=== PATIENT | male | born 1930 | race Caucasian/White ===

== ENCOUNTER 2017-03-31 14:02 | Observation (INO) ==
--- NOTE | 2017-03-31 14:18 | Emergency Department Note ---
Disposition Clinical Impression: Altered mental status Qualifiers: Altered mental status type: unspecified Qualified Code(s): R41.82 - Altered mental status, unspecified Hypertension Qualifiers: Hypertension type: essential hypertension Qualified Code(s): I10 - Essential ( primary) hypertension Disposition: Admitted As Inpatient Condition: Fair Referrals: NONE,PCP [Primary Care Provider] - Forms: ED Satisfaction Letter Time of Disposition: 16:29 Altered Mental Status HPI - General Chief Complaint: ED Altered Mental Status Stated Complaint: AMS Time Seen by Provider: 03/31/17 14:08 Source: EMS Mode of arrival: EMS Limitations: altered mental status Nursing Notes Reviewed: Yes Vital Signs Reviewed: Yes - History of Present Illness HPI Narrative: 86-year-old male who comes in with increasing confusion. The daughter states he' s had problems with memory that is getting progressively worse more confused. The patient lives with his his apparently was admitted yesterday here and had a heart catheter done since she was admitted he will need or drink is more confused. On arrival he doesn't know where he sat does not know the date. She denies any pain. MD complaint: altered mental status Onset (ago): week(s) Timing confirmed by: family member Pain Severity: none Consistency of Symptoms: getting worse Associated symptoms: Reports: denies other symptoms - Related Data Allergies Allergy/AdvReac Type Severity Reaction Status Date / Time No Known Allergies Allergy Verified 03/31/17 14:07 All systems ED: reviewed and negative except as stated. Constitutional: Denies: fever, chills, weakness, weight change Eyes: Denies: eye pain, eye discharge, vision change ENT ED: Denies: ear pain, throat pain, dental pain, hearing loss, epistaxis, congestion, dysphagia Cardiovascular: Denies: chest pain, palpitations, dyspnea on exertion, edema, syncope Respiratory: Denies: cough, dyspnea, wheezes, hemoptysis, stridor Gastrointestinal: Denies: abdominal pain, nausea, vomiting, diarrhea, constipation, hematemesis, melena, hematochezia Genitourinary: Denies: urgency, dysuria, frequency, hematuria Musculoskeletal: Denies: back pain, neck pain, arthralgia, myalgia Integumentary: Denies: rash, abrasion, lesions Neurological: Reports: confusion. Denies: headache, weakness, numbness, paresthesias, abnormal gait, vertigo Psychiatric: Denies: anxiety, depression, suicidal thoughts, homicidal thoughts , auditory hallucinations, visual hallucinations Endocrine: Denies: fatigue Hematological/Lymphatic: Denies: easy bleeding, easy bruising Allergic/Immunologic: Denies: facial swelling, urticaria Past Medical History - Past Medical History Medical history: Reports: dementia, hypertension, myocardial infarction, thyroid disease Psychiatric history: Reports: no psych history - Social History Smoking Status: Never smoker Smokeless Tobacco Status: No Alcohol use: Reports: none Drug use: Reports: none Physical Exam - General Limitations: altered mental status General appearance: alert (Confusion), in no apparent distress - Head Head exam: atraumatic, normocephalic, normal inspection - Eye Eye exam: Present: normal appearance, PERRL, EOMI - ENT ENT exam: normal exam, normal oropharynx, mucous membranes moist - Neck Neck exam: Present: normal inspection, full ROM, trachea midline - Chest Chest inspection: Present: normal inspection, symmetric chest wall rise - Respiratory Respiratory exam: Present: normal lung sounds bilaterally - Cardiovascular Cardiovascular exam: Present: regular rate, normal rhythm, normal heart sounds - Abdominal Exam Abdominal exam: Present: soft, Non-Tender. Absent: tenderness, distention, guarding, rebound, rigidity - Extremities Exam Extremities exam: Present: normal inspection, full ROM. Absent: tenderness, pedal edema - Expanded Lower Extremity Exam Neurovascular/Tendon exam: Absent: motor deficit, sensory deficit, tendon deficit Gait: observed and normal - Back Exam Back exam: Present: normal inspection, full ROM. Absent: tenderness - Expanded Neurological Exam Patient oriented to: Present: person. Absent: place, time (Thought it was August 05 and did not know the year) Speech: Present: fluid speech Motor strength - LUE: 5/5 Motor strength - RUE: 5/5 Motor strength - LLE: 5/5 Motor strength - RLE: 5/5 Coma Scale Eye Opening: Spontaneous Coma Scale Motor Response: Obeys Commands Coma Scale Verbal Response: Confused Coma Scale Total: 14 - Psychiatric Psychiatric exam: Present: normal affect, normal mood - Skin Skin exam: Present: warm, dry, intact, normal color Course - Reevaluation(s) Reevaluation #1: 86-year-old male who has had increasing difficulty with memory his was admitted to the hospital yesterday since that time he has not eaten or drank anything in his become more confused. On arrival here he is not oriented to place or time. Has a lot of difficulty expressing his thoughts. Workup including CT scan was negative negative for urinary tract infection. Lab work all looks okay. This likely represents dementia. Patient will be admitted for evaluation sr. social media & mobile manager it's unclear whether his is going to be take care of him in light of her medical issues. Time: 16:27 - Consultations Consultation #1: Discussed with , admit. Time: 16:29 Vital Signs Temperature 98.9 F 03/31/17 14:08 Pulse Rate 73 03/31/17 14:08 Respiratory Rate 12 03/31/17 14:08 Blood Pressure 189/93 03/31/17 14:08 O2 Sat by Pulse Oximetry 95 03/31/17 14:08 Temperature 98.9 F 03/31/17 14:08 Pulse Rate 60 03/31/17 15:57 Respiratory Rate 14 03/31/17 15:57 Blood Pressure 167/86 03/31/17 15:57 O2 Sat by Pulse Oximetry 94 03/31/17 15:57 Oxygen Delivery Oxygen Delivery Room Air Altered Mental Status - Lab Data Result diagrams: 03/31/17 14:28 03/31/17 14:28 Lab Results 03/31/17 03/31/17 03/31/17 Range/Units 14:23 14:23 14:28 WBC 5.8 (4.3-11.1) K/mcL RBC 5.33 (4.19-5.50) M/mcL Hgb 15.4 (12.9-16.9) g/dL Hct 47.2 (37.5-50.1) % MCV 88.6 (83.0-100.0) fL MCH 28.9 (28.0-33.3) pg MCHC 32.6 (31.6-35.5) g/dL RDW 13.5 (11.5-14.5) % Plt Count 185 (140-400) K/mcL MPV 10.5 (9.4-12.4) fL Immature Gran % 0.5 (0-4) % Seg Neutrophils % 75.5 % Lymphocytes % 11.2 % Monocytes % 9.5 % Eosinophils % 2.4 % Basophils % 0.9 % Neutrophils # 4.4 (1.6-8.9) K/mcL Lymphocytes # 0.7 (0.6-4.6) K/mcL Monocytes # 0.6 (0.0-1.3) K/mcL Eosinophils # 0.1 (0.0-0.6) K/mcL Basophils # 0.1 (0.0-0.2) K/mcL PT (9.4-12.1) Seconds INR APTT (26.0-36.0) Seconds Sodium (136-145) mEq/L Potassium (3.5-4.5) mEq/L Chloride (98-109) mEq/L Carbon Dioxide (19-29) mEq/L BUN (8-26) mg/dL Creatinine (0.72-1.25) mg/dL Est GFR ( Amer) (> 60) Est GFR (Non-Af Amer) (> 60) BUN/Creatinine Ratio (6-26) Glucose (70-99) mg/dL Calculated Osmolality (280-300) Calcium (8.6-10.8) mg/dL Total Bilirubin (0.2-1.2) mg/dL Direct Bilirubin (0.0-0.5) mg/dL Indirect Bilirubin (0.0-1.2) mg/dL AST (5-34) Units/L ALT (0-55) Units/L Alkaline Phosphatase (38-126) Units/L Troponin I (0-0.03) ng/mL Serum Total Protein (6.0-8.3) g/dL Albumin (3.5-5.0) g/dL Globulin (2.4-3.5) g/dL Albumin/Globulin Ratio (1.1-2.2) Urine Color Dark Yellow (Yellow) Urine Clarity Clear (Clear) Urine pH 5.5 (5.0-8.0) pH Units Ur Specific [place]ws 1.027 H (1.010-1.025) Urine Protein 30 H (Neg-Trace) mg/dL Urine Glucose (UA) Normal (Normal) mg/dL Urine Ketones Trace H (Negative) mg/dL Urine Blood Negative (Negative) Urine Nitrite Negative (Negative) Urine Bilirubin Small H (Negative) Urine Urobilinogen Normal (Normal) mg/dL Ur Leukocyte Esterase Negative (Negative) Urine Microscopic RBC 3-5 H (0-3) per hpf Urine Microscopic WBC 0-3 (0-3) per hpf Ur Squamous Epith Cells Moderate H (None-Few) per lpf Urine Bacteria None Seen (None-Few) per hpf Hyaline Casts None Seen (None-Few) per lpf Ur Culture Indicated? NO (NO) Urine Opiates Screen Negative (Qxrzbf=594) ng/mL Ur Barbiturates Screen Negative (Kdnebo=734) ng/mL Ur Phencyclidine Scrn Negative (Cutoff=25) ng/mL Ur Amphetamines Screen Negative (Wzpxyk=4314) ng/mL U Benzodiazepines Scrn Negative (Luyrox=107) ng/mL Urine Cocaine Screen Negative (Cutoff= 300) ng/mL U Marijuana (THC) Screen Negative (Cutoff = 50) ng/mL Ethyl Alcohol (0-10) mg/dL 03/31/17 03/31/17 03/31/17 Range/Units 14:28 14:28 14:28 WBC (4.3-11.1) K/mcL RBC (4.19-5.50) M/mcL Hgb (12.9-16.9) g/dL Hct (37.5-50.1) % MCV (83.0-100.0) fL MCH (28.0-33.3) pg MCHC (31.6-35.5) g/dL RDW (11.5-14.5) % Plt Count (140-400) K/mcL MPV (9.4-12.4) fL Immature Gran % (0-4) % Seg Neutrophils % % Lymphocytes % % Monocytes % % Eosinophils % % Basophils % % Neutrophils # (1.6-8.9) K/mcL Lymphocytes # (0.6-4.6) K/mcL Monocytes # (0.0-1.3) K/mcL Eosinophils # (0.0-0.6) K/mcL Basophils # (0.0-0.2) K/mcL PT 10.7 (9.4-12.1) Seconds INR 1.0 APTT 31.1 (26.0-36.0) Seconds Sodium 141 (136-145) mEq/L Potassium 3.9 (3.5-4.5) mEq/L Chloride 106 (98-109) mEq/L Carbon Dioxide 26 (19-29) mEq/L BUN 20 (8-26) mg/dL Creatinine 1.18 (0.72-1.25) mg/dL Est GFR ( Amer) > 60 (> 60) Est GFR (Non-Af Amer) 58 L (> 60) BUN/Creatinine Ratio 17 (6-26) Glucose 105 H (70-99) mg/dL Calculated Osmolality 295 (280-300) Calcium 9.4 (8.6-10.8) mg/dL Total Bilirubin 1.0 (0.2-1.2) mg/dL Direct Bilirubin 0.4 (0.0-0.5) mg/dL Indirect Bilirubin 0.6 (0.0-1.2) mg/dL AST 18 (5-34) Units/L ALT 10 (0-55) Units/L Alkaline Phosphatase 64 (38-126) Units/L Troponin I 0.02 (0-0.03) ng/mL Serum Total Protein 7.3 (6.0-8.3) g/dL Albumin 3.7 (3.5-5.0) g/dL Globulin 3.6 H (2.4-3.5) g/dL Albumin/Globulin Ratio 1.0 L (1.1-2.2) Urine Color (Yellow) Urine Clarity (Clear) Urine pH (5.0-8.0) pH Units Ur Specific [place] (1.010-1.025) Urine Protein (Neg-Trace) mg/dL Urine Glucose (UA) (Normal) mg/dL Urine Ketones (Negative) mg/dL Urine Blood (Negative) Urine Nitrite (Negative) Urine Bilirubin (Negative) Urine Urobilinogen (Normal) mg/dL Ur Leukocyte Esterase (Negative) Urine Microscopic RBC (0-3) per hpf Urine Microscopic WBC (0-3) per hpf Ur Squamous Epith Cells (None-Few) per lpf Urine Bacteria (None-Few) per hpf Hyaline Casts (None-Few) per lpf Ur Culture Indicated? (NO) Urine Opiates Screen (Fnaloz=659) ng/mL Ur Barbiturates Screen (Brxllb=294) ng/mL Ur Phencyclidine Scrn (Cutoff=25) ng/mL Ur Amphetamines Screen (Bstphk=5041) ng/mL U Benzodiazepines Scrn (Eawgfn=652) ng/mL Urine Cocaine Screen (Cutoff= 300) ng/mL U Marijuana (THC) Screen (Cutoff = 50) ng/mL Ethyl Alcohol < 10 (0-10) mg/dL - EKG Data EKG attestation: Yes I reviewed and interpreted this EKG. EKG results narrative: Paced rhythm TPA Checklist - LKW: 3-4.5 hrs Add. Warnings/Precautions Patient/family understanding: The patient/family members have been counseled and understood the risk, benefit , and alternatives of treatment.
[2017-03-31 14:29] LABS: Bilirubin,Urine Small (Negative); Blood,Urine Negative (Negative); Clarity,Urine Clear (Clear); Color,Urine Dark Yellow (Yellow); Glucose,Urine (UA) Normal (Normal); Ketones,Urine Trace mg/dL (Negative); Leukocyte Esterase,Urine Negative (Negative); Nitrite,Urine Negative (Negative); PH,Urine 5.5 pH Units (5.0-8.0); Protein,Urine 30 mg/dL (Neg-Trace); Specific Gravity,Urine 1.027 (1.010-1.025); Urobilinogen,Urine Normal (Normal)
[2017-03-31 14:31] LABS: Bacteria,Urine None Seen per hpf (None-Few); Hyaline Casts,Urine None Seen per lpf (None-Few); Squamous Epithelial Cell,Urine Moderate per lpf (None-Few); WBC,Urine 0-3 per hpf (0-3)
[2017-03-31 14:36] LABS: Amphetamine Screen,Urine Negative ng/mL (Cutoff=1000); Barbiturate Screen,Urine Negative ng/mL (Cutoff=200); Benzodiazepines Screen,Urine Negative ng/mL (Cutoff=200); Cannabinoid Screen,Urine Negative ng/mL (Cutoff = 50); Cocaine Screen,Urine Negative ng/mL (Cutoff= 300); Opiate Screen,Urine Negative ng/mL (Cutoff=300); Phencyclidine Screen,Urine Negative ng/mL (Cutoff=25)
[2017-03-31 14:37] LABS: Basophils # 0.1 K/mcL (0.0-0.2); Basophils % 0.9 %; Eosinophils # 0.1 K/mcL (0.0-0.6); Eosinophils % 2.4 %; Hematocrit 47.2 % (37.5-50.1); Hemoglobin 15.4 g/dL (12.9-16.9); Immature Granulocytes % 0.5 % (0-4); Lymphocytes # 0.7 K/mcL (0.6-4.6); Lymphocytes % 11.2 %; Mean Corpuscular HGB Conc 32.6 g/dL (31.6-35.5); Mean Corpuscular Hemoglobin 28.9 pg (28.0-33.3); Mean Corpuscular Volume 88.6 fL (83.0-100.0); Mean Platelet Volume 10.5 fL (9.4-12.4); Monocytes # 0.6 K/mcL (0.0-1.3); Monocytes % 9.5 %; Neutrophils # 4.4 K/mcL (1.6-8.9); Platelet Count 185 K/mcL (140-400); Red Blood Count 5.33 M/mcL (4.19-5.50); Red Cell Distribution Width 13.5 % (11.5-14.5); Segmented Neutrophils % 75.5 %
[2017-03-31 14:43] LABS: Prothrombin Time 10.7 Seconds (9.4-12.1)
[2017-03-31 14:46] LABS: Activated Partial Thrombo Time 31.1 Seconds (26.0-36.0)
[2017-03-31 14:51] LABS: Alanine Aminotransferase 10 Units/L (0-55); Albumin 3.7 g/dL (3.5-5.0); Alkaline Phosphatase 64 Units/L (38-126); Aspartate Amino Transferase 18 Units/L (5-34); BUN/Creatinine Ratio 17 (6-26); Bilirubin,Direct 0.4 mg/dL (0.0-0.5); Bilirubin,Indirect 0.6 mg/dL (0.0-1.2); Blood Urea Nitrogen 20 mg/dL (8-26); Calcium 9.4 mg/dL (8.6-10.8); Carbon Dioxide 26 mEq/L (19-29); Chloride 106 mEq/L (98-109); Globulin 3.6 g/dL (2.4-3.5); Glucose 105 mg/dL (70-99); Osmolality,Calculated 295 (280-300); Potassium 3.9 mEq/L (3.5-4.5); Sodium 141 mEq/L (136-145); Total Protein 7.3 g/dL (6.0-8.3); eGFR For African Americans > 60 (> 60); eGFR For Non-African Americans 58 (> 60)
[2017-03-31 14:54] LABS: Ethanol < 10 mg/dL (0-10)
[2017-03-31] MEDS ORDERED: Acetaminophen 325 MG TABLET PO PRN (16:50)
[2017-03-31] MEDS ORDERED: Ondansetron 4 MG/2 ML VIAL IVP PRN (16:50)
[2017-03-31] MEDS ORDERED: Naloxone 0.4 MG/ML INJ IVP PRN (16:50)
[2017-03-31] MEDS ORDERED: *HR* Morphine 2 MG/ML SYRINGE IVP PRN (16:50)
[2017-03-31] MEDS ORDERED: Ipratropium/Albuterol Neb 3 ML IH PRN (16:57)
[2017-03-31] MEDS ORDERED: 0.9 % Sodium Chloride 1,000 ML IVC SCH (17:00)
--- NOTE | 2017-03-31 17:02 | Internal Med History&Physical ---
Date of Encounter: 03/31/17 Time of Encounter: 17:00 Assessment and Plan (1) Altered mental status Current visit: Yes Status: Acute Possibly secondary to dementia which is progressing Fall precautions, consider using Ativan as needed Physical therapy and occupational therapy consults, social service consult for placement Omeprazole for GI prophylaxis is with him as heparin for DVT prophylaxis. The patient will be admitted for observation. Full code. Time spent on this admission 40 minutes. High risk for falling Qualifiers: Altered mental status type: unspecified Qualified Code(s): R41.82 - Altered mental status, unspecified (2) Accelerated hypertension Current visit: Yes Status: Acute Continue amlodipine, use hydralazine IV as needed (3) Hypothyroidism Current visit: Yes Status: Acute Continue levothyroxine Qualifiers: Hypothyroidism type: unspecified Qualified Code(s): E03.9 - Hypothyroidism , unspecified (4) CAD (coronary artery disease) Current visit: Yes Status: Acute Continue aspirin, history of pacemaker Qualifiers: Coronary Disease-Associated Artery/Lesion type: [place] artery [place] vs. transplanted heart: [place] heart Associated angina: without angina Qualified Code(s): I25.10 - Atherosclerotic heart disease of [place] coronary artery without angina pectoris (5) Dementia Current visit: Yes Status: Acute Qualifiers: Dementia type: unspecified type Dementia behavioral disturbance: without behavioral disturbance Qualified Code(s): F03.90 - Unspecified dementia without behavioral disturbance Internal Medicine - H&P: HPI Chief complaint: Altered mental status Admitted From: Emergency Dept History of present illness: Mr. Rubio is a 86 year old male with a past medical history of dementia, hypertension, CAD, hypothyroidism who was brought to the emergency room by her daughter as he has become more confused, recently his was admitted to the hospital/yesterday. CT scan of the head and chest x-ray are unremarkable, blood pressure is 189/93 the patient is oriented only in person at the moment and his situation has been progressing over the past few weeks and days. Family says that it is not safe to keep him at home, he has turned slightly aggressive at times but not at the moment. Patient denies any other complaints. Past Med Surg Social Fam HX - Past Medical History Medical history: dementia, hypertension, myocardial infarction, thyroid disease (Hypothyroidism), other (CAD, leg skin cancer status post removal, bladder cancer status post possibly BCG injection) Psychiatric history: no psych history - Past Surgical History Surgical History: cholecystectomy, pacemaker/AICD - Social History Smoking Status: Former smoker Packs per day: Quit smoking 30 years ago Smokeless Tobacco Status: No Alcohol use: none Drug use: none - Additional Family History Additional family history: Sister with Alzheimer's and 2 brothers with myocardial infarctions Internal Medicine - H&P: Meds Amlodipine Besylate [Amlodipine Besylate] 10 mg PO DAILY 03/31/17 [History] Atenolol [Tenormin] 25 mg PO DAILY 03/31/17 [History] Levothyroxine [Synthroid] 50 mcg PO QAM 03/31/17 [History] Multivitamin [Multi-Day Vitamins] 1 each PO DAILY 03/31/17 [History] [place]-3/Dha/Epa/Fish Oil [Fish Oil 1,000 mg Softgel] 1,000 mg PO DAILY 03/31/17 [History] Pravastatin Sodium [Pravachol] 20 mg PO HS 03/31/17 [History] Allergies No Known Allergies Allergy (Verified 03/31/17 14:07) All Systems PM: A 10-system review of systems was performed and is negative for pertinent findings except as documented above in the HPI. Review of systems: Denies any chest pain, no abdominal pain, no dysuria. Other systems out of the 10 review were negative - Constitutional Vitals: Temp Pulse Resp BP Pulse Ox 98.9 F 60 14 167/86 94 03/31/17 14:08 03/31/17 15:57 03/31/17 15:57 03/31/17 15:57 03/31/17 15:57 General appearance: Present: A&O X 1 - Head Head exam: Present: atraumatic, normocephalic - Eye Eye exam: Present: PERRL, conjuntiva pink, sclera anicteric Pupils: Present: PERRL - Neck Neck exam general surgery: Present: supple, trachea midline. Absent: lymphadenopathy - Respiratory Respiratory exam: Present: CTAB. Absent: accessory muscle use, rales, rhonchi, wheezes - Cardiovascular Cardiovascular exam: Present: RRR, +S1, +S2. Absent: diastolic murmur, gallop, rubs, systolic murmur - GI/Abdominal GI/Abdominal exam: Present: normal bowel sounds, soft, no peritoneal signs. Absent: distended, tenderness - Extremities Exam Extremities exam: Present: warm, radial pulses palpable and symetrical. Absent : calf tenderness, cyanotic, pedal edema - Neurological Exam Neurological exam: Present: CN II-XII intact, no focal deficits. Absent: oriented X3, pronater drift, facial droop, speech deficit - Skin Skin exam: Present: dry, intact Additional comments: Has a chronic right lower extremity edema, several scars in the left knee area due to prior skin cancer removal Internal Med - H&P Results - Labs CBC & Chem 7: 03/31/17 14:28 03/31/17 14:28
[2017-03-31] MEDS: Aspirin Enteric Coated 81 MG Tablet PO SCH (18:39)
[2017-03-31] MEDS: *HR* Heparin 5,000 UNIT/ML VIAL SQ SCH (21:10)
[2017-03-31] MEDS ORDERED: *HR* LORazepam 2 MG/ML VIAL IVP PRN (21:46)
[2017-03-31 22:17] VITALS: BP 158/69
[2017-04-01] MEDS ORDERED: Haloperidol Lactate 5 MG/ML VIAL IM ONE ×4 (01:14→07:57)
[2017-04-01] MEDS: *HR* Heparin 5,000 UNIT/ML VIAL SQ SCH (06:01)
[2017-04-01] MEDS: Aspirin Enteric Coated 81 MG Tablet PO SCH (08:14)
[2017-04-01] MEDS ORDERED: amLODIPine 5 MG TABLET PO SCH (09:00)
--- NOTE | 2017-04-01 10:20 | Internal Med Progress Note ---
Date of Encounter: 04/01/17 Time of Encounter: 08:30 - Assessment and plan (1) Altered mental status Current Visit: Yes Status: Acute Assessment and plan: Pt has been agitated this a.m. He has a sitter at this time. Known dementia that is progressing. and daughter are having increasing difficulty caring for him due to agitation. just had cardiac cath and is downstairs. I spoke with the daughter this a.m. and she states that would like for him to go to respite and adult day care, she is not ready for detention placement yet. health services manager is aware and will speak with daughter. Pt has calmed after Haldol 1mg IM. Tox screen was negative, pt does not have leukocytosis, urine was negative for infection. Sitter for safety Fall precautions/bed alarm Monitor labs and vital signs Qualifiers: Altered mental status type: unspecified Qualified Code(s): R41.82 - Altered mental status, unspecified (2) Hypertension Current Visit: Yes Status: Acute Assessment and plan: Chronic. Monitor vitals and continue home medications. Qualifiers: Hypertension type: essential hypertension Qualified Code(s): I10 - Essential (primary) hypertension (3) Dementia Current Visit: Yes Status: Acute Assessment and plan: Chronic. Plan as above. Qualifiers: Dementia type: unspecified type Dementia behavioral disturbance: without behavioral disturbance Qualified Code(s): F03.90 - Unspecified dementia without behavioral disturbance (4) Hypothyroidism Current Visit: Yes Status: Acute Assessment and plan: TSH was elevated in January,. Will redraw, continue current dose of Levothyroxine. Qualifiers: Hypothyroidism type: unspecified Qualified Code(s): E03.9 - Hypothyroidism , unspecified (5) CAD (coronary artery disease) Current Visit: Yes Status: Acute Assessment and plan: Pt denies chest pain. Continue ASA, Statin. Qualifiers: Coronary Disease-Associated Artery/Lesion type: [place] artery [place] vs. transplanted heart: [place] heart Associated angina: without angina Qualified Code(s): I25.10 - Atherosclerotic heart disease of [place] coronary artery without angina pectoris (6) Lymphedema of right lower extremity Current Visit: Yes Status: Chronic Assessment and plan: Pt had skin cancer removed from RLE, daughter states that the surgery involved lymph nodes. Lymphedema is chronic and daughter states that is improved. (7) DVT prophylaxis Current Visit: Yes Status: Acute Assessment and plan: Heparin SQ - Time Spent With Patient 25 - 35 minutes - Subjective Interval history: Pt was seen several times this a.m. First attempt at 0830. Pt has been agitated and states that everyone is trying to kill him. He is unsteady on his feet and concern for safety and falls prompted a sitter. Pt was yelling out "Help me!". He did get Haldol IM and he relaxed and I was able to assess him. Daughter is at bs at this time and states that her mother would like for pt to go to respite for a few days until she is well enough to have him at home. They would also like for him to go to adult day care during the week. health services manager is aware and will speak with daughter. - Constitutional Vitals: Temp Pulse Resp BP Pulse Ox 98.0 F 85 16 158/69 96 03/31/17 22:16 03/31/17 22:16 03/31/17 22:16 03/31/17 22:16 03/31/17 22:16 General appearance: Present: cooperative, A&O X 1, no acute distress, answers questions appropriately - Head Head exam: Present: normal inspection - Eye Eye exam: Present: normal appearance, conjuntiva pink - ENT ENT exam: Present: mucous membranes moist, normal exam, normal external ear exam - Neck Neck exam general surgery: Present: normal inspection. Absent: lymphadenopathy , tenderness - Respiratory Respiratory exam: Present: CTAB. Absent: rales, respiratory distress, rhonchi, stridor, wheezes - Cardiovascular Cardiovascular exam: Present: RRR, +S1, +S2. Absent: clicks, diastolic murmur, gallop, systolic murmur - GI/Abdominal GI/Abdominal exam: Present: distended, normal bowel sounds, soft. Absent: tenderness - Extremities Exam Extremities exam: Present: pedal edema, warm, radial pulses palpable and symetrical. Absent: normal inspection, tenderness - Neurological Exam Neurological exam: Present: alert, altered, no focal deficits. Absent: oriented X3, facial droop, speech deficit - Psychiatric Psychiatric exam: Present: agitated - Skin Skin exam: Present: dry, normal color, warm Internal Medicine: Result - Labs CBC & Chem 7: 03/31/17 14:28 03/31/17 14:28 - ABG Interpretation ABG results: PT/INR, D-dimer PT 10.7 Seconds (9.4-12.1) 03/31/17 14:28 Consult Discharge Plan - Plan Referrals: NONE,PCP [Primary Care Provider] -
--- NOTE | 2017-04-01 11:38 | Electrocardiograph Report ---
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
== END 2017-04-01 12:50 | disposition home or self-care (01) ==
LOC: 3BNU 14:02 → EMEROO 14:02 → 3BNU 17:04
PROVIDERS: ADMIT Registered Nurse; ATTEND Registered Nurse

== ENCOUNTER 2017-05-01 09:38 | Inpatient (IN) ==
--- NOTE | 2017-05-01 09:45 | Emergency Department Note ---
Disposition Clinical Impression: Hypernatremia, MYRON (acute kidney injury), Elevated troponin Altered mental status Qualifiers: Altered mental status type: unspecified Qualified Code(s): R41.82 - Altered mental status, unspecified Disposition: Admitted As Inpatient Condition: Fair Referrals: Wm Albert MD [Primary Care Provider] - Forms: ED Satisfaction Letter General Adult HPI - General Chief complaint: ED Shortness of Breath/Dyspnea Stated complaint: KENNEDY Time Seen by Provider: 05/01/17 09:43 Source: EMS Mode of arrival: EMS Limitations: altered mental status Nursing Notes Reviewed: Yes Vital Signs Reviewed: Yes - History of Present Illness HPI Narrative: 86-year-old male history of Parkinson's, Alzheimer's disease presents to the ER via EMS with a chief complaint of shortness of breath and hypoxia. Patient was recently transferred to this facility roughly 1 week ago. EMS states since that time that they have been unable to fully wake the patient and he is missed multiple days of his medication secondary to this. They report increased respiratory effort today with hypoxia into the 80s there. Staff was concerned for potential aspiration. EMS also reports that he fell at the facility recently and is on low-dose aspirin. He presents to the ER here with a GCS of 9 satting 100% on room air. He is unable to provide any of his own history or to voices on complaints. No other concerns. Pt Subjective Complaint: Dyspnea, altered mental status Onset (ago): day(s) Radiation: non-radiation Consistency: constant Improves with: nothing Worsens with: nothing Treatments Prior to Arrival: none - Related Data Home Medications Medication Instructions Recorded Confirmed Amlodipine Besylate [Amlodipine 10 mg PO DAILY 03/31/17 03/31/17 Besylate] Atenolol [Tenormin] 25 mg PO DAILY 03/31/17 03/31/17 Levothyroxine [Synthroid] 50 mcg PO QAM 03/31/17 03/31/17 Multivitamin [Multi-Day Vitamins] 1 each PO DAILY 03/31/17 03/31/17 [place]-3/Dha/Epa/Fish Oil [Fish Oil 1,000 mg PO DAILY 03/31/17 03/31/17 1,000 mg Softgel] Pravastatin Sodium [Pravachol] 20 mg PO HS 03/31/17 03/31/17 Allergies Allergy/AdvReac Type Severity Reaction Status Date / Time quetiapine [From Seroquel] Allergy See Verified 05/01/17 09:43 Comments Limitations: ROS unobtainable due to patients medical condition Past Medical History - Past Medical History Attestation: Yes The following information was validated with the patient. Source: old records reviewed Medical history: Reports: dementia, hypertension, myocardial infarction, thyroid disease, other Surgical history: Reports: cholecystectomy, pacemaker/AICD Psychiatric history: Reports: no psych history - Social History Smoking Status: Former smoker Smokeless Tobacco Status: No Alcohol use: Reports: none Drug use: Reports: none Physical Exam - General Limitations: altered mental status General appearance: in no apparent distress, obtunded - Head Head exam: atraumatic, normocephalic, normal inspection - Eye Eye exam: Present: normal appearance, EOMI - ENT ENT exam: normal exam, normal oropharynx - Neck Neck exam: Present: normal inspection - Respiratory Respiratory exam: Present: other (course breath sounds in right lung base. No wheezing. No rhonchi.) - Cardiovascular Cardiovascular exam: Present: regular rate, normal rhythm, normal heart sounds - Abdominal Exam Abdominal exam: Present: soft, Non-Tender. Absent: tenderness, distention, rigidity - Extremities Exam Extremities exam: Present: normal inspection - Expanded Upper Extremity Exam Shoulder exam: Present: normal inspection Arm exam: Present: normal inspection Elbow exam: Present: normal inspection Forearm/Wrist exam: Present: normal inspection Hand exam: Present: normal inspection Vascular exam: Normal: radial pulse - Expanded Lower Extremity Exam Hip/Pelvis exam: Present: normal inspection Upper leg exam: Present: normal inspection Knee exam: Present: normal inspection Lower leg exam: Present: normal inspection Ankle exam: Present: normal inspection Foot/toe exam: Present: normal inspection - Expanded Neurological Exam Coma Scale Eye Opening: To Pain Coma Scale Motor Response: Localizes to Pain Coma Scale Verbal Response: Incomprehensible Coma Scale Total: 9 - Skin Skin exam: Present: warm, dry, intact, normal color Course Course Narrative: Patient seen and examined the time of arrival. He is 100% on room air with a good waveform on the monitor. He has a GCS of 9. He is unable to provide any history. We will do an altered mental status workup as EMS reports that he fell today as well. We will obtain a CT scan of the head as well as an x-ray of the chest, EKG, labs including troponin, urinalysis. Vital Signs Temperature 100.9 F H 05/01/17 10:09 Pulse Rate 81 05/01/17 10:09 Respiratory Rate 27 05/01/17 10:09 Blood Pressure 126/52 05/01/17 10:09 O2 Sat by Pulse Oximetry 95 05/01/17 10:09 Temperature 98.5 F 05/01/17 12:00 Pulse Rate 79 05/01/17 12:00 Respiratory Rate 18 05/01/17 12:00 Blood Pressure 134/59 05/01/17 12:00 O2 Sat by Pulse Oximetry 92 05/01/17 12:00 Oxygen Delivery Oxygen Delivery Room Air Medical Decision Making - MDM Narrative Medical decision making narrative: 86-year-old male presents to the ER from the nursing facility due to altered mental status shortness of breath and hypoxia. No O2 requirement here. He has a GCS of 9 upon arrival. Questionable concern for drug-induced altered mental status. His EKG is nonischemic however his troponin is 0.08. Chest x-ray and head CT are negative. He does have a plethora of metabolic derangements including hypernatremia of 160, hyperchloremia of 121, acute kidney injury with a creatinine 1.76 with BUNs over 60. Patient given 2 L of IV fluids in the ER. Patient will be admitted to the hospitalist service for further management. - Lab Data Lab results reviewed: Yes I reviewed the patient's lab results. Result diagrams: 05/01/17 11:24 05/01/17 11:24 Lab Results 05/01/17 05/01/17 05/01/17 Range/Units 09:56 10:00 11:24 WBC 16.4 H (4.3-11.1) K/mcL RBC 4.99 (4.19-5.50) M/mcL Hgb 15.1 (12.9-16.9) g/dL Hct 48.6 (37.5-50.1) % MCV 97.4 D (83.0-100.0) fL MCH 30.3 (28.0-33.3) pg MCHC 31.1 L (31.6-35.5) g/dL RDW 14.6 H (11.5-14.5) % Plt Count 120 L (140-400) K/mcL MPV 11.7 (9.4-12.4) fL Immature Gran % 1.0 (0-4) % Seg Neutrophils % 84.4 % Lymphocytes % 2.9 % Monocytes % 10.5 % Eosinophils % 0.7 % Basophils % 0.5 % Neutrophils # 13.8 H (1.6-8.9) K/mcL Lymphocytes # 0.5 L (0.6-4.6) K/mcL Monocytes # 1.7 H (0.0-1.3) K/mcL Eosinophils # 0.1 (0.0-0.6) K/mcL Basophils # 0.1 (0.0-0.2) K/mcL Immature Plt Fraction 5.4 (1.1-6.1) % PT (9.4-12.1) Seconds INR Sodium (136-145) mEq/L Potassium (3.5-4.5) mEq/L Chloride (98-109) mEq/L Carbon Dioxide (19-29) mEq/L BUN (8-26) mg/dL Creatinine (0.72-1.25) mg/dL Est GFR ( Amer) (> 60) Est GFR (Non-Af Amer) (> 60) BUN/Creatinine Ratio (6-26) Glucose (70-99) mg/dL Calculated Osmolality (280-300) Lactic Acid (0.5-2.2) mmol/L Calcium (8.6-10.8) mg/dL Total Bilirubin (0.2-1.2) mg/dL Direct Bilirubin (0.0-0.5) mg/dL Indirect Bilirubin (0.0-1.2) mg/dL AST (5-34) Units/L ALT (0-55) Units/L Alkaline Phosphatase (38-126) Units/L Troponin I (0-0.03) ng/mL Serum Total Protein (6.0-8.3) g/dL Albumin (3.5-5.0) g/dL Globulin (2.4-3.5) g/dL Albumin/Globulin Ratio (1.1-2.2) TSH (0.350-4.840) mcIU/mL Urine Color Yellow (Yellow) Urine Clarity Clear (Clear) Urine pH 5.5 (5.0-8.0) pH Units Ur Specific [place] 1.024 (1.010-1.025) Urine Protein Trace (Neg-Trace) mg/dL Urine Glucose (UA) Normal (Normal) mg/dL Urine Ketones Negative (Negative) mg/dL Urine Blood Small H (Negative) Urine Nitrite Negative (Negative) Urine Bilirubin Small H (Negative) Urine Urobilinogen Normal (Normal) mg/dL Ur Leukocyte Esterase Negative (Negative) Urine Microscopic RBC 5-15 H (0-3) per hpf Urine Microscopic WBC 0-3 (0-3) per hpf Ur Squamous Epith Cells Many H (None-Few) per lpf Urine Bacteria None Seen (None-Few) per hpf Hyaline Casts None Seen (None-Few) per lpf Ur Culture Indicated? NO (NO) Specimen Rejected MCV Delta 05/01/17 05/01/17 05/01/17 Range/Units 11:24 11:24 11:24 WBC (4.3-11.1) K/mcL RBC (4.19-5.50) M/mcL Hgb (12.9-16.9) g/dL Hct (37.5-50.1) % MCV (83.0-100.0) fL MCH (28.0-33.3) pg MCHC (31.6-35.5) g/dL RDW (11.5-14.5) % Plt Count (140-400) K/mcL MPV (9.4-12.4) fL Immature Gran % (0-4) % Seg Neutrophils % % Lymphocytes % % Monocytes % % Eosinophils % % Basophils % % Neutrophils # (1.6-8.9) K/mcL Lymphocytes # (0.6-4.6) K/mcL Monocytes # (0.0-1.3) K/mcL Eosinophils # (0.0-0.6) K/mcL Basophils # (0.0-0.2) K/mcL Immature Plt Fraction (1.1-6.1) % PT 13.0 H (9.4-12.1) Seconds INR 1.2 Sodium 160 H* (136-145) mEq/L Potassium 4.5 (3.5-4.5) mEq/L Chloride 121 H (98-109) mEq/L Carbon Dioxide 29 (19-29) mEq/L BUN 67 H (8-26) mg/dL Creatinine 1.76 H (0.72-1.25) mg/dL Est GFR ( Amer) 45 L (> 60) Est GFR (Non-Af Amer) 37 L (> 60) BUN/Creatinine Ratio 38 H (6-26) Glucose 111 H (70-99) mg/dL Calculated Osmolality 350 H (280-300) Lactic Acid (0.5-2.2) mmol/L Calcium 9.0 (8.6-10.8) mg/dL Total Bilirubin 0.8 (0.2-1.2) mg/dL Direct Bilirubin 0.4 (0.0-0.5) mg/dL Indirect Bilirubin 0.4 (0.0-1.2) mg/dL AST 35 H (5-34) Units/L ALT 29 (0-55) Units/L Alkaline Phosphatase 59 (38-126) Units/L Troponin I 0.08 H* (0-0.03) ng/mL Serum Total Protein 6.4 (6.0-8.3) g/dL Albumin 2.8 L (3.5-5.0) g/dL Globulin 3.6 H (2.4-3.5) g/dL Albumin/Globulin Ratio 0.8 L (1.1-2.2) TSH 3.703 (0.350-4.840) mcIU/mL Urine Color (Yellow) Urine Clarity (Clear) Urine pH (5.0-8.0) pH Units Ur Specific [place] (1.010-1.025) Urine Protein (Neg-Trace) mg/dL Urine Glucose (UA) (Normal) mg/dL Urine Ketones (Negative) mg/dL Urine Blood (Negative) Urine Nitrite (Negative) Urine Bilirubin (Negative) Urine Urobilinogen (Normal) mg/dL Ur Leukocyte Esterase (Negative) Urine Microscopic RBC (0-3) per hpf Urine Microscopic WBC (0-3) per hpf Ur Squamous Epith Cells (None-Few) per lpf Urine Bacteria (None-Few) per hpf Hyaline Casts (None-Few) per lpf Ur Culture Indicated? (NO) Specimen Rejected 05/01/17 Range/Units 11:24 WBC (4.3-11.1) K/mcL RBC (4.19-5.50) M/mcL Hgb (12.9-16.9) g/dL Hct (37.5-50.1) % MCV (83.0-100.0) fL MCH (28.0-33.3) pg MCHC (31.6-35.5) g/dL RDW (11.5-14.5) % Plt Count (140-400) K/mcL MPV (9.4-12.4) fL Immature Gran % (0-4) % Seg Neutrophils % % Lymphocytes % % Monocytes % % Eosinophils % % Basophils % % Neutrophils # (1.6-8.9) K/mcL Lymphocytes # (0.6-4.6) K/mcL Monocytes # (0.0-1.3) K/mcL Eosinophils # (0.0-0.6) K/mcL Basophils # (0.0-0.2) K/mcL Immature Plt Fraction (1.1-6.1) % PT (9.4-12.1) Seconds INR Sodium (136-145) mEq/L Potassium (3.5-4.5) mEq/L Chloride (98-109) mEq/L Carbon Dioxide (19-29) mEq/L BUN (8-26) mg/dL Creatinine (0.72-1.25) mg/dL Est GFR ( Amer) (> 60) Est GFR (Non-Af Amer) (> 60) BUN/Creatinine Ratio (6-26) Glucose (70-99) mg/dL Calculated Osmolality (280-300) Lactic Acid 1.8 (0.5-2.2) mmol/L Calcium (8.6-10.8) mg/dL Total Bilirubin (0.2-1.2) mg/dL Direct Bilirubin (0.0-0.5) mg/dL Indirect Bilirubin (0.0-1.2) mg/dL AST (5-34) Units/L ALT (0-55) Units/L Alkaline Phosphatase (38-126) Units/L Troponin I (0-0.03) ng/mL Serum Total Protein (6.0-8.3) g/dL Albumin (3.5-5.0) g/dL Globulin (2.4-3.5) g/dL Albumin/Globulin Ratio (1.1-2.2) TSH (0.350-4.840) mcIU/mL Urine Color (Yellow) Urine Clarity (Clear) Urine pH (5.0-8.0) pH Units Ur Specific [place] (1.010-1.025) Urine Protein (Neg-Trace) mg/dL Urine Glucose (UA) (Normal) mg/dL Urine Ketones (Negative) mg/dL Urine Blood (Negative) Urine Nitrite (Negative) Urine Bilirubin (Negative) Urine Urobilinogen (Normal) mg/dL Ur Leukocyte Esterase (Negative) Urine Microscopic RBC (0-3) per hpf Urine Microscopic WBC (0-3) per hpf Ur Squamous Epith Cells (None-Few) per lpf Urine Bacteria (None-Few) per hpf Hyaline Casts (None-Few) per lpf Ur Culture Indicated? (NO) Specimen Rejected - Radiology Data Radiology results reviewed: Yes I reviewed the patient's radiology results. Chest X-Ray 05/01/17 09:42 IMPRESSION: No evidence of acute cardiopulmonary disease. Possible left upper lobe pulmonary nodule. Recommend continued attention on follow-up. D/ / Vince Ojeda MD / Vince Ojeda MD Interpreting Provider: Vince Ojeda MD Head CT 05/01/17 09:42 IMPRESSION: No acute intracranial abnormality. 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 D/ / Marin Hopkins MD / Marin Hopkins MD Interpreting Provider: Marin Hopkins MD - EKG Data EKG #1 EKG attestation: Yes I reviewed and interpreted this EKG. EKG results narrative: EKG demonstrates a ventricularly paced rhythm with a rate of 82 bpm. Prolonged NH interval of 201. QRS duration 90. QTc 390. Normal axis. No gross ST elevations or depressions. No acute ischemic findings. No significant changes from previous EKG dated 03/31/17. S.Jose M.AJon. - SNiurka. Situation: Demographics, MOA Background: Presenting Complaint, Relevant PMH, Meds, & Allergies Assessment: Vital Signs, Course and respsone to treatment, Exam Concerns, Patient/Family Expectation, Pertinant Lab Results, Outstanding Labs Recommendation: Barrier(s) to disposition, Recommendation based on pending studies, treatments, or consults S.B.A.R. Report Given to: Lauren Matamoros
[2017-05-01 10:09] LABS: Bilirubin,Urine Small (Negative); Blood,Urine Small (Negative); Clarity,Urine Clear (Clear); Color,Urine Yellow (Yellow); Glucose,Urine (UA) Normal (Normal); Ketones,Urine Negative (Negative); Leukocyte Esterase,Urine Negative (Negative); Nitrite,Urine Negative (Negative); PH,Urine 5.5 pH Units (5.0-8.0); Protein,Urine Trace mg/dL (Neg-Trace); Specific Gravity,Urine 1.024 (1.010-1.025); Urobilinogen,Urine Normal (Normal)
[2017-05-01 10:11] LABS: Bacteria,Urine None Seen per hpf (None-Few); Hyaline Casts,Urine None Seen per lpf (None-Few); Squamous Epithelial Cell,Urine Many per lpf (None-Few); WBC,Urine 0-3 per hpf (0-3)
[2017-05-01] MEDS ORDERED: 0.9 % Sodium Chloride 1,000 ML IVC ONE ×2 (10:32→12:37)
--- NOTE | 2017-05-01 10:33 | Emergency Department Note ---
START Narrative - START START: I examined this patient and my medical decision-making was reviewed with the [employer]/PA/Advanced Practice Nurse/Resident Physician. I agree with the documented findings, disposition and treatment plan as described except to the extent set forth below. ED attending: Patient's emergency medicine resident Dr. GARCIA. Please see copy of this note for H&P evaluation and management and ED disposition. We both had independent [id number] time in contact with this patient. Briefly: 86-year-old male by EMS from [facility] facility for altered mental status and shortness of breath. Comes in with sonorous respirations drywall mucosa minimally responsive to voice and pain. [facility] he has been "like that since the when they got him". But getting worse over the past few days not taking oral meds. They said baseline is some verbal responsiveness and able to follow some commands and somewhat awake but not today. He is febrile to 100.3 here. His tachypnea and tachycardic. Patient will have CT scan cultures chest x-ray urinalysis and blood work. Patient has SIRS criteria possibly sepsis. Providing 45 minutes of critical care service for this patient. With admission anticipated. Disposition pending.
[2017-05-01 11:33] LABS: Basophils # 0.1 K/mcL (0.0-0.2); Basophils % 0.5 %; Eosinophils # 0.1 K/mcL (0.0-0.6); Eosinophils % 0.7 %; Hematocrit 48.6 % (37.5-50.1); Hemoglobin 15.1 g/dL (12.9-16.9); Immature Platelets 5.4 % (1.1-6.1); Lymphocytes # 0.5 K/mcL (0.6-4.6); Lymphocytes % 2.9 %; Mean Corpuscular HGB Conc 31.1 g/dL (31.6-35.5); Mean Corpuscular Hemoglobin 30.3 pg (28.0-33.3); Mean Corpuscular Volume 97.4 fL (83.0-100.0); Mean Platelet Volume 11.7 fL (9.4-12.4); Monocytes # 1.7 K/mcL (0.0-1.3); Monocytes % 10.5 %; Neutrophils # 13.8 K/mcL (1.6-8.9); Platelet Count 120 K/mcL (140-400); Red Blood Count 4.99 M/mcL (4.19-5.50); Red Cell Distribution Width 14.6 % (11.5-14.5); Segmented Neutrophils % 84.4 %
[2017-05-01 11:40] LABS: INR 1.2
[2017-05-01 11:47] LABS: Albumin 2.8 g/dL (3.5-5.0); Albumin/Globulin Ratio 0.8 (1.1-2.2); Bilirubin,Direct 0.4 mg/dL (0.0-0.5); Bilirubin,Indirect 0.4 mg/dL (0.0-1.2); Bilirubin,Total 0.8 mg/dL (0.2-1.2); Globulin 3.6 g/dL (2.4-3.5); Potassium 4.5 mEq/L (3.5-4.5); Total Protein 6.4 g/dL (6.0-8.3)
[2017-05-01 12:08] LABS: Thyroid Stimulating Hormone 3.703 mcIU/mL (0.350-4.840)
[2017-05-01] MEDS ORDERED: Ondansetron 4 MG/2 ML VIAL IVP PRN (17:17)
[2017-05-01] MEDS ORDERED: Naloxone 0.4 MG/ML INJ IVP PRN (17:17)
[2017-05-01] MEDS ORDERED: D5% in 0.45% NACL 1,000 ML IVC SCH (17:30)
[2017-05-01] MEDS: Pantoprazole 40 MG VIAL IVP SCH (18:02)
[2017-05-01] MEDS: *HR* HYDROmorphone (PF) 1 MG/ML SYRINGE IVP PRN (18:02)
[2017-05-01] MEDS: MethylPREDNISolone 40 MG/ML VIAL IVP SCH (18:02)
[2017-05-01] MEDS ORDERED: D5% in Water 1,000 ML IVC ONE (18:58)
[2017-05-01 19:12] LABS: Calcium 8.8 mg/dL (8.6-10.8); Potassium 4.6 mEq/L (3.5-4.5)
--- NOTE | 2017-05-01 19:21 | Event Note ---
Date of Encounter: 05/01/17 Time of Encounter: 19:17 I have personally performed a face to face evaluation on this patient. I have reviewed and agree with the care plan. History and Exam by me shows: 86 y/o admitted for mental status change. Family at bedside. Pt was walking and caring for himself in early Mar. Became confused and taken to hospital. Now with mental status issues. Exam alert but unable to interact Donny Harrington respirations noted Agitated during cycles. Significant upper airway secretions Abd soft Not tachy Urine in bag I/P 1. Acute encephalopathy - I am concerned he has had a CVA but unable to get MRI due to pacer 2. Hypernatremia He is profoundly hypernatremic. He is not hypotensive. Creatinine is elevated. Diabetes insipidus is in differential. Will change to D5W for now and follow sodium. Consider DDAVP but do not want to rapidly lower sodium. Prognosis is poor. Palliative consulted as well.
[2017-05-01] MEDS ORDERED: D5% in Water 1,000 ML IVC SCH (19:30)
--- NOTE | 2017-05-01 22:25 | Internal Med History&Physical ---
<Kavon Ramirez - Last Filed: 05/02/17 00:53> Date of Encounter: 05/02/17 Time of Encounter: 16:00 Assessment and Plan (1) Altered mental status Current visit: Yes Status: Acute Patient presents with acute AMS most likely related to acute encephalopathy. Patient's family reports he has become increasingly short of breath and hypoxic. They state patient was recently hospitalized in another hospital 3 weeks ago for approximately 2 weeks and transferred to an SNF for 1 week during which time patient experienced drastic mental status changes. Prior to previous hospitalization, family states patient was independent, able to walk and talk, and responsive. Patient's family reports he fell 3 times at the SNF facility. Patient is currently altered and unable to provide any information on history or complaints. CT of the head today shows no intracranial abnormality. Neurochecks ordered every 4. Timed BMPs ordered. Patient's AMS could also be related to current hypernatremia which is being addressed with IV D5. Concern is for possible previous CVA but MRI is contraindicated due to patient having a pacemaker/AICD. Haldol ordered for agitation. Qualifiers: Altered mental status type: disorientation Qualified Code(s): R41.0 - Disorientation, unspecified (2) Elevated troponin Current visit: Yes Status: Acute Patient presents with acute and elevated troponin level of 0.08 on admission. Trend troponins 2. (3) Hypernatremia Current visit: Yes Status: Acute Patient presents with acute hypernatremia with sodium level of 160 on admission. D5 ordered at 50 mL/HR. Will monitor sodium through follow-up labs. (4) Difficulty clearing secretions Current visit: Yes Status: Acute Patient presents with significant upper airway secretions. Airway and nasopharyngeal suctioning ordered. Will monitor patient for possible aspiration pneumonia. (5) Poor prognosis Current visit: Yes Status: Acute Patient presents with acute and poor prognosis based on rapid mental and physical decline over the past three weeks. Palliative consult ordered and discussed with family who are amenable. (6) CAD (coronary artery disease) Current visit: Yes Status: Chronic Patient presents with history of CAD. Patient placed on continuous cardiac telemetry and will be monitored. Qualifiers: Coronary Disease-Associated Artery/Lesion type: [place] artery [place] vs. transplanted heart: [place] heart Associated angina: without angina Qualified Code(s): I25.10 - Atherosclerotic heart disease of [place] coronary artery without angina pectoris (7) DVT prophylaxis Current visit: Yes Status: Acute Patient to be placed on DVT prophylaxis due to current admission protocol and current symptoms. Heparin 5,000 units SQ Q8 ordered. Internal Medicine - H&P: HPI Chief complaint: SOB/Dyspnea/AMS Admitted From: Emergency Dept Plans for Post Hospital Care: Home History of present illness: Mr. Rubio is a 86 year old male with medical history of dementia, hypertension , myocardial infarction in 2010, and thyroid disease. Patient is a former smoker who smoked 2 packs per day but family reports he quit 23 years ago. Patient currently has pacemaker/AICD which is due to be replaced according to his family. Patient's family reports he is becoming increasingly short of breath and hypoxic. They state patient was recently hospitalized in another hospital 3 weeks ago for approximately 2 weeks and transferred to an SNF for 1 week during which time patient experienced drastic mental status changes. Prior hospitalization, family states patient was independent, able to walk and talk, and responsive. Patient reports he fell 3 times at the SNF facility. Patient is currently altered and unable to provide any information on history or complaints. Patient experiencing [place] respirations and becomes agitated in cycles on examination. There is significant upper airway secretions requiring suctioning. Concern is for possible CVA explaining AMS but MRI is contraindicated due to patient having a pacemaker. NIHSS and neuro checks ordered. On admission, patient's WBC is 16.4 with RR of 27 and suspected infection due to HCAP from recent hospitalizations. Mr. Rubio is at high risk for increasing infection and further morbidity due to current symptoms and risk factors and will be placed as inpatient. Time spent with patient and family >40 minutes. Past Med Surg Social Fam HX - Past Medical History Source: old records reviewed, obtained from family Medical history: dementia, hypertension, myocardial infarction, thyroid disease , other Psychiatric history: no psych history - Past Surgical History Surgical History: cholecystectomy, pacemaker/AICD - Social History Smoking Status: Former smoker Smokeless Tobacco Status: No Alcohol use: none Drug use: none Occupational status: retired Current living situation: Assisted Living - Family History Father Race: Family Member Ethnicity: Non- Living Status: Hx Family Respiratory Disorders: Yes (Black Lung) Mother Race: Family Member Ethnicity: Non- Living Status: Cause of : Pneumonia Hx Family Respiratory Disorders: Yes (Pneumonia) Brother Race: Family Member Ethnicity: Non- Living Status: Age at : 70 Cause of : Lung cancer Hx Family Cardiac Disorders: Yes (HD, GA, HTN) Hx Family Cancer: Yes (Lung) Sister Race: Family Member Ethnicity: Non- Living Status: Age at : 80 Cause of : Dementia Hx Family Neurologic Disorders: Yes (Dementia) Internal Medicine - H&P: Meds Amlodipine Besylate [Amlodipine Besylate] 10 mg PO DAILY 03/31/17 [History] Atenolol [Tenormin] 25 mg PO DAILY 03/31/17 [History] Levothyroxine [Synthroid] 50 mcg PO QAM 03/31/17 [History] Multivitamin [Multi-Day Vitamins] 1 each PO DAILY 03/31/17 [History] [place]-3/Dha/Epa/Fish Oil [Fish Oil 1,000 mg Softgel] 1,000 mg PO DAILY 03/31/17 [History] Pravastatin Sodium [Pravachol] 20 mg PO HS 03/31/17 [History] Acetaminophen [Tylenol] 650 mg PO Q4H PRN 05/01/17 [History] Aspirin Enteric Coated [Aspirin EC] 81 mg PO DAILY 05/01/17 [History] Benztropine [Cogentin] 0.5 mg PO BID 05/01/17 [History] Bisacodyl [Dulcolax] 10 mg RC HS PRN 05/01/17 [History] Docusate [Colace] 100 mg PO DAILY PRN 05/01/17 [History] Ipratropium/Albuterol Neb [Duoneb] 3 ml IH Q4H PRN 05/01/17 [History] LORazepam [Ativan] 0.5 mg PO Q4H PRN 05/01/17 [History] Magnesium Hydroxide [Milk of Magnesia] 2,400 mg PO DAILY PRN 05/01/17 [History] Polyethylene Glycol 3350 [MiraLAX] 17 gm PO DAILY PRN 05/01/17 [History] Valproic Acid Oral Soln [Depakene Oral Soln] 400 mg PO TID 05/01/17 [History] risperiDONE [RisperDAL] 0.25 mg PO DAILY 05/01/17 [History] traZODone [TraZODone] 50 mg PO HS PRN 05/01/17 [History] 3 Allergy/AdvReac Type Severity Reaction Status Date / Time quetiapine [From Seroquel] Allergy See Verified 05/01/17 09:43 Comments ROS unobtainable: due to mental status All Systems PM: A 10-system review of systems was performed and is negative for pertinent findings except as documented above in the HPI. - Constitutional Vitals: Temp Pulse Resp BP Pulse Ox 99.3 F 82 21 137/64 91 05/01/17 21:10 05/01/17 21:10 05/01/17 21:10 05/01/17 21:10 05/01/17 21:10 General appearance: Present: A&O X 0 - Head Head exam: Present: atraumatic, normocephalic - Eye Eye exam: Present: normal appearance, PERRL, conjuntiva pink, sclera anicteric Pupils: Present: PERRL - ENT ENT exam: Present: normal exam, normal external ear exam - Neck Neck exam general surgery: Present: normal inspection, supple, trachea midline - Respiratory Respiratory exam: Present: accessory muscle use, respiratory distress, rhonchi - Cardiovascular Cardiovascular exam: Present: RRR, +S1, +S2. Absent: diastolic murmur, gallop, rubs, systolic murmur - GI/Abdominal GI/Abdominal exam: Present: diminished bowel sounds, soft - Rectal Rectal exam: Present: deferred - Additional comments: exam deferred. - Extremities Exam Extremities exam: Present: warm, radial pulses palpable and symmetrical. Absent : calf tenderness, cyanotic, pedal edema - Neurological Exam Neurological exam: Present: altered - Psychiatric Psychiatric exam: Present: agitated - Skin Skin exam: Present: dry, intact Internal Med - H&P Results - Labs CBC & Chem 7: 05/01/17 11:24 05/01/17 18:51 Labs: BMP 05/01/17 18:51 Sodium 162 H* Potassium 4.6 H Chloride 125 H Carbon Dioxide 25 BUN 61 H Creatinine 1.53 H Glucose 132 H Calcium 8.8 Cardiac Enzymes 05/01/17 Range/Units 18:51 Troponin I 0.07 H* (0-0.03) ng/mL - Diagnostic Studies Chest x-ray Additional comments: Impressions Chest X-Ray 05/01/17 09:42 IMPRESSION: No evidence of acute cardiopulmonary disease. Possible left upper lobe pulmonary nodule. Recommend continued attention on follow-up. D/ / Vince Ojeda MD / Vince Ojeda MD Interpreting Provider: Vince Ojeda MD CT scan - head Additional comments: Impressions Head CT 05/01/17 09:42 IMPRESSION: No acute intracranial abnormality. 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 D/ / Marin Hopkins MD / Marin Hopkins MD Interpreting Provider: Marin Hopkins MD <JustinChad A - Last Filed: 05/02/17 12:21> Date of Encounter: 05/02/17 Internal Medicine - H&P: HPI History of present illness: Mr. Rubio is a 86 year old male All Systems PM: A 10-system review of systems was performed and is negative for pertinent findings except as documented above in the HPI. - Constitutional Vitals: Temp Pulse Resp BP Pulse Ox 98.5 F 77 18 116/82 97 05/02/17 12:13 05/02/17 12:13 05/02/17 12:13 05/02/17 12:13 05/02/17 12:13 Internal Med - H&P Results - Labs CBC & Chem 7: 05/02/17 01:08 05/02/17 01:08 Labs: Short CBC 05/02/17 Range/Units 01:08 WBC 13.0 H (4.3-11.1) K/mcL Hgb 14.8 (12.9-16.9) g/dL Hct 50.4 H (37.5-50.1) % Plt Count 128 L (140-400) K/mcL Neutrophils # 12.0 H (1.6-8.9) K/mcL BMP 05/01/17 05/02/17 18:51 01:08 Sodium 162 H* 160 H* Potassium 4.6 H 4.7 H Chloride 125 H 123 H Carbon Dioxide 25 27 BUN 61 H 59 H Creatinine 1.53 H 1.71 H Glucose 132 H 168 H Calcium 8.8 9.1 Cardiac Enzymes 05/01/17 05/02/17 Range/Units 18:51 01:08 Troponin I 0.07 H* 0.05 H* (0-0.03) ng/mL Liver Function 05/02/17 Range/Units 01:08 Total Bilirubin 0.7 (0.2-1.2) mg/dL AST 41 H (5-34) Units/L ALT 31 (0-55) Units/L Alkaline Phosphatase 60 (38-126) Units/L Albumin 2.5 L (3.5-5.0) g/dL - Attending Attestation I have personally performed a face to face evaluation on this patient on . I have reviewed and agree with the care plan. History and Exam by me shows: Please see event note of this date.
[2017-05-02 01:23] LABS: INR 1.2; Prothrombin Time 12.6 Seconds (9.4-12.1)
[2017-05-02 01:26] LABS: Activated Partial Thrombo Time 29.6 Seconds (26.0-36.0)
[2017-05-02 01:34] LABS: Chol/HDL Ratio 3.6 (0-4.9); Magnesium 2.7 mg/dL (1.6-2.6)
[2017-05-02] MEDS: *HR* Heparin 5,000 UNIT/ML VIAL SQ SCH ×2 (01:46→09:41)
[2017-05-02] MEDS: MethylPREDNISolone 40 MG/ML VIAL IVP SCH ×2 (05:08→18:18)
[2017-05-02] MEDS: *HR* HYDROmorphone (PF) 1 MG/ML SYRINGE IVP PRN ×2 (05:18→14:04)
[2017-05-02] MEDS: Acetaminophen 650 MG RECTAL SUPP RC PRN (06:21)
--- NOTE | 2017-05-02 08:07 | Internal Med Progress Note ---
<Poppy Varela - Last Filed: 05/02/17 17:49> Date of Encounter: 05/02/17 Time of Encounter: 08:07 (approximate) - Assessment and plan (1) Altered mental status Current Visit: No Status: Acute Assessment and plan: AMS likely 2/2 to acute encephalopathy Neurochecks ordered every 4. Timed BMPs ordered for PM and AM AMS could also be related to current hypernatremia which is being addressed with IV D5 Concern is for possible previous CVA but MRI is contraindicated Bilateral DVT demonstrated this afternoon, pt placed on heparin Qualifiers: Altered mental status type: unspecified Qualified Code(s): R41.82 - Altered mental status, unspecified (2) Hypernatremia Current Visit: Yes Status: Acute Assessment and plan: D5 at 150 mL/hr Timed BMP ordered for 1900 Continue to monitor sodium via labs (3) Elevated troponin Current Visit: Yes Status: Acute Assessment and plan: Troponins x 2 : 0.07, 0.05 (4) CAD (coronary artery disease) Current Visit: Yes Status: Chronic Assessment and plan: Pt on continuous telemetry Qualifiers: Coronary Disease-Associated Artery/Lesion type: [place] artery [place] vs. transplanted heart: [place] heart Associated angina: without angina Qualified Code(s): I25.10 - Atherosclerotic heart disease of [place] coronary artery without angina pectoris (5) DVT prophylaxis Current Visit: Yes Status: Acute Assessment and plan: Bilateral lower extremity venous duplex exam completed. Positive DVT in right Pop V and Left Gastroc V Pt on heparin (6) Poor prognosis Current Visit: Yes Status: Acute (7) Difficulty clearing secretions Current Visit: Yes Status: Acute - Time Spent With Patient 25 - 35 minutes - Subjective Interval history: Pt appears in discomfort periodically. Responds to verbal request to squeeze hand in AM during resident's exam. and daughter by side. Respiratory present at visit and preparing for deep suction. Examined by attending in afternoon and, appeared more reactive in afternoon, with by side. Patient was not verbal AM or PM. - Constitutional Vitals: Temp Pulse Resp BP Pulse Ox 101.6 F H 81 20 135/65 92 05/02/17 06:45 05/02/17 06:45 05/02/17 06:45 05/02/17 06:45 05/02/17 06:45 General appearance: Present: mild distress (periodically. Unable to assess A&O status 2/2 to patient's verbal unresponsiveness. Pt does make grunts that appear as attempts to communicate.) - Head Head exam: Present: atraumatic, normocephalic - Respiratory Respiratory exam: Present: accessory muscle use, respiratory distress, rhonchi - Cardiovascular Cardiovascular exam: Present: RRR, +S1, +S2. Absent: diastolic murmur, distant heart sounds - GI/Abdominal GI/Abdominal exam: Present: diminished bowel sounds, soft - Neurological Exam Neurological exam: Present: altered, speech deficit (responsive to request to finger grasp) - Psychiatric Psychiatric exam: Present: agitated Internal Medicine: Result - Labs CBC & Chem 7: 05/02/17 13:42 05/02/17 13:42 Labs: BMP 05/01/17 05/02/17 18:51 01:08 Sodium 162 H* Potassium 4.6 H Chloride 125 H Carbon Dioxide 25 BUN 61 H Creatinine 1.53 H 1.71 H Glucose 132 H Calcium 8.8 Cardiac Enzymes 05/01/17 05/02/17 Range/Units 18:51 01:08 Troponin I 0.07 H* 0.05 H* (0-0.03) ng/mL - ABG Interpretation ABG results: PT/INR, D-dimer PT 12.6 Seconds (9.4-12.1) H 05/02/17 01:08 D-Dimer [id number] ng/mLFEU (0-500) H 05/01/17 15:46 Consult Discharge Plan - Plan Referrals: Wm Albert MD [Primary Care Provider] - <Chad Anderson - Last Filed: 05/02/17 18:13> Date of Encounter: 05/02/17 - Assessment and plan (1) Hypernatremia Current Visit: Yes Status: Acute (2) Acute metabolic encephalopathy Current Visit: Yes Status: Acute (3) Acute deep vein thrombosis (DVT) of right popliteal vein Current Visit: Yes Status: Acute (4) Acute deep vein thrombosis (DVT) of left femoral vein Current Visit: Yes Status: Acute (5) CAD (coronary artery disease) Current Visit: Yes Status: Chronic Qualifiers: Coronary Disease-Associated Artery/Lesion type: [place] artery [place] vs. transplanted heart: [place] heart Associated angina: without angina Qualified Code(s): I25.10 - Atherosclerotic heart disease of [place] coronary artery without angina pectoris (6) Hypertension Current Visit: Yes Status: Chronic Qualifiers: Hypertension type: essential hypertension Qualified Code(s): I10 - Essential (primary) hypertension (7) Hypothyroidism Current Visit: Yes Status: Chronic Qualifiers: Hypothyroidism type: acquired Qualified Code(s): E03.9 - Hypothyroidism, unspecified - Time Spent With Patient My time was 40min - Constitutional Vitals: Temp Pulse Resp BP Pulse Ox 99.3 F 66 18 132/56 97 05/02/17 17:34 05/02/17 16:10 05/02/17 16:10 05/02/17 16:10 05/02/17 16:10 Internal Medicine: Result - Labs CBC & Chem 7: 05/02/17 13:42 05/02/17 13:42 Labs: Short CBC 05/02/17 05/02/17 Range/Units 01:08 13:42 WBC 13.0 H 13.2 H (4.3-11.1) K/mcL Hgb 14.8 13.8 (12.9-16.9) g/dL Hct 50.4 H 46.2 (37.5-50.1) % Plt Count 128 L 121 L (140-400) K/mcL Neutrophils # 12.0 H (1.6-8.9) K/mcL BMP 05/01/17 05/02/17 05/02/17 18:51 01:08 13:42 Sodium 162 H* 160 H* 159 H Potassium 4.6 H 4.7 H 4.5 Chloride 125 H 123 H 124 H Carbon Dioxide 25 27 29 BUN 61 H 59 H 56 H Creatinine 1.53 H 1.71 H 1.55 H Glucose 132 H 168 H 158 H Calcium 8.8 9.1 9.0 Cardiac Enzymes 05/01/17 05/02/17 Range/Units 18:51 01:08 Troponin I 0.07 H* 0.05 H* (0-0.03) ng/mL Liver Function 05/02/17 Range/Units 01:08 Total Bilirubin 0.7 (0.2-1.2) mg/dL AST 41 H (5-34) Units/L ALT 31 (0-55) Units/L Alkaline Phosphatase 60 (38-126) Units/L Albumin 2.5 L (3.5-5.0) g/dL - ABG Interpretation ABG results: PT/INR, D-dimer PT 13.5 Seconds (9.4-12.1) H 05/02/17 13:42 D-Dimer [id number] ng/mLFEU (0-500) H 05/01/17 15:46 - Attending Attestation I examined this patient and my medical decision-making was reviewed with the Resident Physician on 05/02/17. I agree with the documented findings, disposition and treatment plan as described except to the extent set forth below. Mr. Rubio is currently admitted for severe hypernatremia as well as presumed pneumonia. He is high risk due to significant electrolyte abnormalities and overall clinical condition. Mr. Rubio seems a little more alert and responsive today. He is still very restless with a lot of upper airway secretions. Had fever earlier today. Venous duplex positive for bilateral DVTs. Family at bedside and updated. Exam Alert. Restless. Mucus membranes dry Heart reg and tachy Lungs with severe upper airway rhonchi Abd soft No edema I/P 1. Hypernatremia 2. DVTs Further diagnoses and plan as above.
[2017-05-02 09:04] LABS: Hemoglobin 14.8 g/dL (12.9-16.9)
[2017-05-02 09:07] LABS: Hematocrit 50.4 % (37.5-50.1); Mean Corpuscular HGB Conc 29.4 g/dL (31.6-35.5); Mean Corpuscular Hemoglobin 29.7 pg (28.0-33.3); Mean Corpuscular Volume 101.2 fL (83.0-100.0); Mean Platelet Volume 12.4 fL (9.4-12.4); Platelet Count 128 K/mcL (140-400); Red Blood Count 4.98 M/mcL (4.19-5.50)
[2017-05-02 09:18] LABS: Albumin 2.5 g/dL (3.5-5.0); Albumin/Globulin Ratio 0.6 (1.1-2.2); Bilirubin,Total 0.7 mg/dL (0.2-1.2); Calcium 9.1 mg/dL (8.6-10.8); Globulin 3.9 g/dL (2.4-3.5); Potassium 4.7 mEq/L (3.5-4.5); Total Protein 6.4 g/dL (6.0-8.3)
[2017-05-02 09:22] LABS: Lymphocytes # 0.3 K/mcL (0.6-4.6); Monocytes # 0.8 K/mcL (0.0-1.3)
[2017-05-02 09:23] LABS: Platelet Estimate Slight Decrease (Normal)
[2017-05-02] MEDS: Pantoprazole 40 MG VIAL IVP SCH (09:41)
[2017-05-02] MEDS: Haloperidol Lactate 5 MG/ML VIAL IVP PRN (09:41)
[2017-05-02 10:20] LABS: Phosphorous 2.6 mg/dL (2.3-4.7)
[2017-05-02] MEDS ORDERED: Vancomycin 1,250 MG in D5% in Water 250 ML IVPB SCH (11:00)
[2017-05-02] MEDS ORDERED: D5% in 0.9% NACL 1,000 ML IVC SCH ×2 (11:30→17:05)
[2017-05-02] MEDS ORDERED: *HR* Heparin 5,000 UNIT/ML VIAL IVP ONE (12:54)
[2017-05-02] MEDS ORDERED: *HR* Heparin 5,000 UNIT/ML VIAL IVP PRN ×2 (12:54)
[2017-05-02] MEDS ORDERED: Heparin 25,000 UNIT/500 ML D5W 25,000 UNIT/500 ML MLS IVC SCH (13:00)
[2017-05-02 14:09] LABS: Hematocrit 46.2 % (37.5-50.1); Hemoglobin 13.8 g/dL (12.9-16.9); Mean Corpuscular HGB Conc 29.9 g/dL (31.6-35.5); Mean Corpuscular Hemoglobin 28.9 pg (28.0-33.3); Mean Corpuscular Volume 96.7 fL (83.0-100.0); Mean Platelet Volume 12.2 fL (9.4-12.4); Platelet Count 121 K/mcL (140-400); Red Blood Count 4.78 M/mcL (4.19-5.50); Red Cell Distribution Width 14.6 % (11.5-14.5)
[2017-05-02 14:16] LABS: INR 1.2; Prothrombin Time 13.5 Seconds (9.4-12.1)
[2017-05-02 14:18] LABS: Activated Partial Thrombo Time 33.7 Seconds (26.0-36.0)
[2017-05-02 14:23] LABS: Potassium 4.5 mEq/L (3.5-4.5)
[2017-05-02] MEDS: Vancomycin 1,250 MG in D5% in Water 250 ML IVPB SCH (17:11)
[2017-05-02] MEDS: Piperacillin/Tazobactam 3.375 GM in D5% in Water (Mini-Bag+) 100 ML IVPB SCH (18:14)
[2017-05-02 19:22] LABS: Calcium 9.3 mg/dL (8.6-10.8); Potassium 4.8 mEq/L (3.5-4.5)
[2017-05-02 20:11] LABS: Activated Partial Thrombo Time 217.9 Seconds (26.0-36.0)
[2017-05-02 20:49] LABS: Heparin anti-factor XA UFH 1.12 IU/mL (0.30-0.70)
[2017-05-03] MEDS: Piperacillin/Tazobactam 3.375 GM in D5% in Water (Mini-Bag+) 100 ML IVPB SCH ×3 (00:27→15:05)
--- NOTE | 2017-05-03 03:51 | Event Note ---
Date of Encounter: 05/03/17 Time of Encounter: 03:48 Patient was having hemoptysis early evening. RN request us to see the patient and clotted dark blood noted in his mouth and patient was gargling. Imaging at section performed and significant amount of clotted dark blood obtained. A chest x-ray performed. Patient breathing improved. He is on IV heparin for bilateral DVT and due to significant bleeding was put on hold. Morning team to further assess the patient and perhaps an IVC filter would be a better choice in his case as he seems to have bled quite significantly with chunks of clotted blood. Chest x-ray showed new right lung infiltrates which could be aspiration versus bleed. Stat Hemoglobin ordered. If patient is bleeding into his lungs and probably marked worsening team should consider consulting pulmonology. But as noted after suction and his breathing has improved and after stopping IV heparin bleeding has not stopped. Also noted that his sodium is quite high but no follow-up sodium is ordered by the managing team. Recheck sodium ordered. Patient overall is responding to verbal commands.
[2017-05-03] MEDS: MethylPREDNISolone 40 MG/ML VIAL IVP SCH (05:18)
[2017-05-03 05:27] LABS: Basophils # 0.1 K/mcL (0.0-0.2); Basophils % 0.7 %; Hematocrit 46.9 % (37.5-50.1); Hemoglobin 14.1 g/dL (12.9-16.9); Immature Granulocytes % 0.9 % (0-4); Immature Platelets 5.7 % (1.1-6.1); Lymphocytes # 0.4 K/mcL (0.6-4.6); Lymphocytes % 2.6 %; Mean Corpuscular HGB Conc 30.1 g/dL (31.6-35.5); Mean Corpuscular Hemoglobin 29.1 pg (28.0-33.3); Mean Corpuscular Volume 96.9 fL (83.0-100.0); Mean Platelet Volume 12.1 fL (9.4-12.4); Monocytes # 1.2 K/mcL (0.0-1.3); Monocytes % 8.5 %; Nucleated Red Blood Cells 0.1 /100 WBC (0); Platelet Count 136 K/mcL (140-400); Red Blood Count 4.84 M/mcL (4.19-5.50); Red Cell Distribution Width 14.6 % (11.5-14.5); Segmented Neutrophils % 87.3 %
[2017-05-03 05:42] LABS: Calcium 9.1 mg/dL (8.6-10.8); Potassium 4.7 mEq/L (3.5-4.5)
[2017-05-03 05:52] LABS: Platelet Estimate Decreased (Normal)
[2017-05-03] MEDS ORDERED: Perflutren Lipid Microsphere 1.3 ML in 0.9 % Sodium Chloride 8.7 ML IVP ONE (06:54)
--- NOTE | 2017-05-03 07:03 | Internal Med Progress Note ---
Addendum entered and electronically signed by Poppy Varela MD 05/03/17 17:37: Correction: Troponins x 2 : 0.07, 0.05 on 05/01 and 05/02, respectively Original Note: <Poppy Varela - Last Filed: 05/03/17 17:26> Date of Encounter: 05/03/17 Time of Encounter: 07:02 - Assessment and plan (1) Altered mental status Current Visit: No Status: Acute Assessment and plan: AMS likely 2/2 to acute encephalopathy Multifactorial in nature, possibly 2/2 to CVA vs. hypxoemia cannot be confirmed Pt with hemoptysis, and not able to be further anticoagulated at this time. The encephalopathy from CVA or from hypoxemia does not appear to be getting better. Per palliative, the patient cannot tolerate feeding at this time and the family does not seem to be interested in any kind of artificial feeding however this is an ongoing discussion. Qualifiers: Altered mental status type: unspecified Qualified Code(s): R41.82 - Altered mental status, unspecified (2) Hypernatremia Current Visit: Yes Status: Acute Assessment and plan: D5 with 0.45 NacL at 125 mL/hr Continue to monitor sodium via labs Plan for timed BMP a 20:00 and AM (3) Elevated troponin Current Visit: Yes Status: Acute Assessment and plan: Troponins x 2 : 0.07, 0.05 yesterday (4) CAD (coronary artery disease) Current Visit: Yes Status: Chronic Assessment and plan: Pt on continuous telemetry Qualifiers: Coronary Disease-Associated Artery/Lesion type: [place] artery [place] vs. transplanted heart: [place] heart Associated angina: without angina Qualified Code(s): I25.10 - Atherosclerotic heart disease of [place] coronary artery without angina pectoris (5) DVT prophylaxis Current Visit: Yes Status: Acute Assessment and plan: Bilateral lower extremity venous duplex exam completed. Positive DVT in right Pop V and Left Gastroc V Heparin d/c due to bleeding overnight (6) Difficulty clearing secretions Current Visit: Yes Status: Acute Assessment and plan: Respiratory has seen pt this morning. Per respiratory, pt may not be candidate for continued deep suction to increased risk of trauma (7) Poor prognosis Current Visit: Yes Status: Acute Assessment and plan: Palliative consult, see note for details Appreciate recs - Subjective Interval history: Overnight team was notified of hemoptysis. - Constitutional Vitals: Temp Pulse Resp BP Pulse Ox 99.8 F H 81 22 131/58 90 05/03/17 06:09 05/03/17 06:09 05/03/17 06:09 05/03/17 06:09 05/03/17 06:09 General appearance: Present: mild distress (periodically. Unable to assess A&O status 2/2 to patient's verbal unresponsiveness. Pt does make grunts that appear as attempts to communicate.) Internal Medicine: Result - Labs CBC & Chem 7: 05/03/17 05:18 05/03/17 12:38 Labs: Short CBC 05/02/17 05/02/17 05/03/17 Range/Units 01:08 13:42 05:18 WBC 13.0 H 13.2 H 13.7 H (4.3-11.1) K/mcL Hgb 14.8 13.8 14.1 (12.9-16.9) g/dL Hct 50.4 H 46.2 46.9 (37.5-50.1) % Plt Count 128 L 121 L 136 L (140-400) K/mcL Neutrophils # 12.0 H 12.0 H (1.6-8.9) K/mcL BMP 05/02/17 05/02/17 05/02/17 01:08 13:42 18:59 Sodium 160 H* 159 H 159 H Potassium 4.7 H 4.5 4.8 H Chloride 123 H 124 H 123 H Carbon Dioxide 27 29 29 BUN 59 H 56 H 56 H Creatinine 1.71 H 1.55 H 1.58 H Glucose 168 H 158 H 127 H Calcium 9.1 9.0 9.3 05/03/17 05:18 Sodium 160 H* Potassium 4.7 H Chloride 125 H Carbon Dioxide 26 BUN 55 H Creatinine 1.71 H Glucose 144 H Calcium 9.1 Liver Function 05/02/17 Range/Units 01:08 Total Bilirubin 0.7 (0.2-1.2) mg/dL AST 41 H (5-34) Units/L ALT 31 (0-55) Units/L Alkaline Phosphatase 60 (38-126) Units/L Albumin 2.5 L (3.5-5.0) g/dL - ABG Interpretation ABG results: PT/INR, D-dimer PT 13.5 Seconds (9.4-12.1) H 05/02/17 13:42 D-Dimer 83415 ng/mLFEU (0-500) H 05/01/17 15:46 - Impressions Impressions Chest X-Ray 05/02/17 20:01 IMPRESSION: New airspace disease on the right suspicious for pneumonia. This may be related to aspiration. D/ / Marcus López MD / Marcus López MD Interpreting Provider: Marcus López MD Consult Discharge Plan - Plan Referrals: Wm Albert MD [Primary Care Provider] - <Chad Anderson - Last Filed: 05/03/17 19:05> Date of Encounter: 05/03/17 - Assessment and plan (1) Hypernatremia Current Visit: Yes Status: Acute (2) Acute metabolic encephalopathy Current Visit: Yes Status: Acute (3) Acute deep vein thrombosis (DVT) of right popliteal vein Current Visit: Yes Status: Acute (4) Acute deep vein thrombosis (DVT) of left femoral vein Current Visit: Yes Status: Acute (5) CAD (coronary artery disease) Current Visit: Yes Status: Chronic Qualifiers: Coronary Disease-Associated Artery/Lesion type: [place] artery [place] vs. transplanted heart: [place] heart Associated angina: without angina Qualified Code(s): I25.10 - Atherosclerotic heart disease of [place] coronary artery without angina pectoris (6) Hypertension Current Visit: Yes Status: Chronic Qualifiers: Hypertension type: essential hypertension Qualified Code(s): I10 - Essential (primary) hypertension (7) Hypothyroidism Current Visit: Yes Status: Chronic Qualifiers: Hypothyroidism type: acquired Qualified Code(s): E03.9 - Hypothyroidism, unspecified (8) Acute renal failure due to tubular necrosis Current Visit: Yes Status: Suspected - Constitutional Vitals: Temp Pulse Resp BP Pulse Ox 98.9 F 68 18 125/62 94 05/03/17 15:32 05/03/17 15:32 05/03/17 15:32 05/03/17 15:32 05/03/17 15:32 Internal Medicine: Result - Labs CBC & Chem 7: 05/03/17 05:18 05/03/17 12:38 Labs: Short CBC 05/03/17 Range/Units 05:18 WBC 13.7 H (4.3-11.1) K/mcL Hgb 14.1 (12.9-16.9) g/dL Hct 46.9 (37.5-50.1) % Plt Count 136 L (140-400) K/mcL Neutrophils # 12.0 H (1.6-8.9) K/mcL BMP 05/02/17 05/03/17 05/03/17 18:59 05:18 12:38 Sodium 159 H 160 H* 160 H* Potassium 4.8 H 4.7 H 5.2 H Chloride 123 H 125 H 124 H Carbon Dioxide 29 26 28 BUN 56 H 55 H 59 H Creatinine 1.58 H 1.71 H 1.94 H Glucose 127 H 144 H 215 H Calcium 9.3 9.1 8.8 - ABG Interpretation ABG results: ABG ABG pH 7.37 pH Units (7.32-7.45) 05/03/17 08:15 ABG pCO2 52 mmHg (35-45) H 05/03/17 08:15 ABG pO2 64 mmHg (85-104) L 05/03/17 08:15 ABG O2 Saturation 91 % (95-98) L 05/03/17 08:15 PT/INR, D-dimer PT 13.5 Seconds (9.4-12.1) H 05/02/17 13:42 D-Dimer 72225 ng/mLFEU (0-500) H 05/01/17 15:46 - Impressions Impressions Chest X-Ray 05/02/17 20:01 IMPRESSION: New airspace disease on the right suspicious for pneumonia. This may be related to aspiration. D/ / Marcus López MD / Marcus López MD Interpreting Provider: Marcus López MD - Attending Attestation I examined this patient and my medical decision-making was reviewed with the Resident Physician on 05/03/17. I agree with the documented findings, disposition and treatment plan as described except to the extent set forth below. Mr Rubio is currently admitted for encephalopathy and hypernatremia. He remains high risk due to potential for worsening fluid status and electrolytes. Mr. Rubio continues to be agitated at times. His sodium remains high. He is very dry. Had hemoptysis last night and heparin stopped. Exam Unresponsive Restless Mucus membranes dry Heartreg Lungs with upper airway secretions. No edema Continues to make significant urine I/P 1. Hypernatremia 2. Dehydration - ? DI Further diagnoses and plan as above.
[2017-05-03] MEDS: D5% in 0.45% NACL 1,000 ML IVC SCH ×2 (08:11→16:02)
[2017-05-03] MEDS: Pantoprazole 40 MG VIAL IVP SCH (08:12)
--- NOTE | 2017-05-03 08:17 | Electrocardiograph Report ---
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
[2017-05-03 08:22] LABS: ABG Base Excess 3.5 mEq/L (-2.0 to 3.0); ABG HCO3 30 mEq/L (21-27); ABG Oxygen Saturation 91 % (95-98); ABG PCO2 52 mmHg (35-45); ABG PH 7.37 pH Units (7.32-7.45); ABG PO2 64 mmHg (85-104); ABG TCO2 31.7 mEq/L (20-26)
[2017-05-03 08:25] LABS: Blood Gas FiO2 100 %; Blood Gas Modality NRB
--- NOTE | 2017-05-03 08:25 | Venous Imaging Report ---
LE Venous Duplex Patient Name:Chano Rubio Order Number:[id number] Procedure Date:05/02/2017 Date:1930Age:86 yrs Gender:Male Location:[facility] Room #: 2NE31 Digital Media Strategist:Madeleine Magana RDCS Referring MD:Kavon Ramirez CNP beef cattle farm manager:Nanci Rueda CNP Reading MD:Jude Fritz MD Primary Indications:Edema Secondary Indications: Impressions: Acute deep venous thrombosis is present in the right popliteal vein. Normal right lower extremity superficial venous exam. Acute deep venous thrombosis is present in the left gastrocnemius vein. Normal left lower extremity superficial venous exam. Recommendations: Test completed on 05/02/2017 at 11:50:00 am. Critical findings reported to mike Anderson RN by phone at 12:30:00 pm on 05/02/2017 by Madeleine Magana RDCS. Findings Venous Duplex Results: Right: There is an occlusive thrombus seen in the right popliteal. Left: There is an occlusive thrombus seen in the left gastrocnemius. Prior Study: No prior study available for comparison. Lower Extremity Venous Duplex Side Vein Compress Spontaneous Flow Augment Diameter (cm) Depth (cm) Right Distal Iliac Normal Yes Phasic Yes Right Common Femoral Normal Yes Phasic Yes Right Superficial Femoral Normal Yes Phasic Yes Right Popliteal None no Absent no Right Posterior Tibial Normal Yes Phasic Yes Right Peroneal Normal Yes Phasic Yes Right Gastrocnemius Normal Yes Phasic Yes Right Saphenofemoral [place] Normal Yes Phasic Yes Right Great Saphenous Normal Yes Phasic Yes Right Great Saphenous [place] Normal Yes Phasic Yes Right [place] BK Normal Yes Phasic Yes Right Lesser Saphenous Normal Yes Phasic Yes Left Distal Iliac Normal Yes Phasic Yes Left Common Femoral Normal Yes Phasic Yes Left Superficial Femoral Normal Yes Phasic Yes Left Popliteal Normal Yes Phasic Yes Left Posterior Tibial Normal Yes Phasic Yes Left Peroneal Normal Yes Phasic Yes Left Gastrocnemius None no Absent no Left Saphenofemoral [place] Normal Yes Phasic Yes Left [place] Normal Yes Phasic Yes Left [place] S[place]hen[place] Normal Yes Phasic Yes Left [place] BK Normal Yes Phasic Yes Left Lesser Saphenous Normal Yes Phasic Yes Updated by Jude Fritz MD on 05/03/2017 7:25:48 AM electronically signed on 05/03/2017 7:26:05 AM with status of Final
[2017-05-03] MEDS: *HR* HYDROmorphone (PF) 1 MG/ML SYRINGE IVP PRN (08:28)
[2017-05-03] MEDS: Vancomycin 1,250 MG in D5% in Water 250 ML IVPB SCH (11:37)
[2017-05-03 13:39] LABS: Calcium 8.8 mg/dL (8.6-10.8); Potassium 5.2 mEq/L (3.5-4.5)
[2017-05-03] MEDS ORDERED: *HR* Morphine 2 MG/ML SYRINGE IVP PRN (14:40)
--- NOTE | 2017-05-03 15:27 | Palliative - Consult Note ---
Date of Encounter: 05/03/17 Time of Encounter: 09:50 - Assessment and Plan (1) Altered mental status Current Visit: No Status: Acute Assessment and plan: Multifactorial in nature, may very well be related to either a recent CVA which cannot be confirmed, next is the possibility of the patient having a pulmonary embolus due to the fact patient does have known DVT, also had some hemoptysis and is not able to be further anticoagulated at this time. The encephalopathy from CVA or from hypoxemia does not appear to be getting better. The patient cannot tolerate feeding at this time and the family does not seem to be interested in any kind of artificial feeding however this is an ongoing discussion. Qualifiers: Altered mental status type: unspecified Qualified Code(s): R41.82 - Altered mental status, unspecified (2) Dementia Current Visit: No Status: Acute Assessment and plan: Per the family this is a recent diagnosis and was mild at worst. However this does seem to be a agnostic ability for the last 6 months or so. Qualifiers: Dementia type: unspecified type Dementia behavioral disturbance: without behavioral disturbance Qualified Code(s): F03.90 - Unspecified dementia without behavioral disturbance (3) Acute metabolic encephalopathy Current Visit: Yes Status: Acute Assessment and plan: As already noted this is an acute problem, probably secondary to either a CVA hypoxemia from a possible PE. Does not appear to be getting better at this time. Patient cannot eat and family seems to be tilting away from artificial feeding. If family decides in favor of hospice this would be the hospice diagnosis. The patient is eligible for hospice on this basis. (4) Goals of care, counseling/discussion Current Visit: Yes Status: Acute Assessment and plan: CODE STATUS Alejandra established a DNR CCA, DNI. Goals of care family stance the patient's prognosis is quite poor at this point in time. The patient is actually hospice eligible at this time due to the fact that he cannot eat secondary to his encephalopathy. The family does decide on hospice care I believe I would probably recommend inpatient hospice to begin with and then transition back out. This will be an ongoing discussion. I have discussed this at length with Dr. Anderson was the patient's hospital care physician. Palliative-CN HPI - Data of Consult Patient: new to practice Requesting Physician: Chad Anderson DO Primary Care Provider: Dirk N Juschka, MD - Consult Narrative Palliative Care/Comfort Measures: Palliative care History of present illness: Mr. Rubio is a 86 year old male Was experiencing a decline in mental function, for the last several months probably 4-6, went to [facility] in [place] for workup of this had a sudden change in mental status resulting in him not speaking or responding appropriately. However the patient was at least able to eat to some degree. He went to a detention from there worse. Was brought to [facility] for other changes are considered to be encephalopathic. Become increasingly short of breath and hypoxic, at the SNF facility and was also falling. Arrival to the [facility] patient was experiencing [place] respirations and becoming very agitated and cycles on examination. It was significant upper airway secretions which required suctioning. Was concerned at that time for CVA, however MRI was contra indicated to the patient having a pacemaker. It was also some concern about H From prior recent hospitalizations. Per family prior to hospitalization in [place] he was doing quite well but was experiencing a decline in mental status. Steadily worse ever since he left there and at this point the family does not feel that he will recover. He appears to be comfortable, but is noncommunicative at this time family does not noted any acute needs at this time. It was consulted regarding goals of care. CODE STATUS at already been established. CC: Chad Anderson, DO Altered mental status Past Med Surg Social Fam HX - Past Medical History Medical history: dementia, hypertension, myocardial infarction, thyroid disease , other Psychiatric history: no psych history - Past Surgical History Surgical History: cholecystectomy, pacemaker/AICD - Social History Smoking Status: Former smoker Smokeless Tobacco Status: No Alcohol use: none Drug use: none - Family History Father Race: Family Member Ethnicity: Non- Living Status: Hx Family Respiratory Disorders: Yes (Black Lung) Mother Race: Family Member Ethnicity: Non- Living Status: Cause of : Pneumonia Hx Family Respiratory Disorders: Yes (Pneumonia) Brother Race: Family Member Ethnicity: Non- Living Status: Age at : 70 Cause of : Lung cancer Hx Family Cardiac Disorders: Yes (HD, [place], HTN) Hx Family Cancer: Yes (Lung) Sister Race: Family Member Ethnicity: Non- Living Status: Age at : 80 Cause of : Dementia Hx Family Neurologic Disorders: Yes (Dementia) Medications and Allergies Amlodipine Besylate [Amlodipine Besylate] 10 mg PO DAILY 03/31/17 [History] Atenolol [Tenormin] 25 mg PO DAILY 03/31/17 [History] Levothyroxine [Synthroid] 50 mcg PO QAM 03/31/17 [History] Multivitamin [Multi-Day Vitamins] 1 each PO DAILY 03/31/17 [History] [place]-3/Dha/Epa/Fish Oil [Fish Oil 1,000 mg Softgel] 1,000 mg PO DAILY 03/31/17 [History] Pravastatin Sodium [Pravachol] 20 mg PO HS 03/31/17 [History] Acetaminophen [Tylenol] 650 mg PO Q4H PRN 05/01/17 [History] Aspirin Enteric Coated [Aspirin EC] 81 mg PO DAILY 05/01/17 [History] Benztropine [Cogentin] 0.5 mg PO BID 05/01/17 [History] Bisacodyl [Dulcolax] 10 mg RC HS PRN 05/01/17 [History] Docusate [Colace] 100 mg PO DAILY PRN 05/01/17 [History] Ipratropium/Albuterol Neb [Duoneb] 3 ml IH Q4H PRN 05/01/17 [History] LORazepam [Ativan] 0.5 mg PO Q4H PRN 05/01/17 [History] Magnesium Hydroxide [Milk of Magnesia] 2,400 mg PO DAILY PRN 05/01/17 [History] Polyethylene Glycol 3350 [MiraLAX] 17 gm PO DAILY PRN 05/01/17 [History] Valproic Acid Oral Soln [Depakene Oral Soln] 400 mg PO TID 05/01/17 [History] risperiDONE [RisperDAL] 0.25 mg PO DAILY 05/01/17 [History] traZODone [TraZODone] 50 mg PO HS PRN 05/01/17 [History] 3 Allergy/AdvReac Type Severity Reaction Status Date / Time quetiapine [From Seroquel] Allergy See Verified 05/01/17 09:43 Comments ROS unobtainable: due to mental status Palliative Care-Exam - Constitutional Vitals: Temp Pulse Resp BP Pulse Ox 99.7 F H 94 22 159/70 93 05/03/17 10:29 05/03/17 10:29 05/03/17 10:29 05/03/17 10:29 05/03/17 10:29 General appearance: Present: no acute distress - Head Head Exam: Present: atraumatic, normal inspection - Eye Eye exam: Present: normal appearance - ENT ENT exam: Present: mucous membranes moist - Respiratory Respiratory exam: Present: decreased breath sounds, rhonchi - Cardiovascular Cardiovascular exam: Present: RRR - GI/Abdominal Exam GI/Abdominal exam: Present: diminished bowel sounds, soft. Absent: tenderness - Catheter Type: Urethral ([place]) - Extremities Exam Extremities exam: Present: pedal edema (Trace). Absent: normal inspection, tenderness - Neurological Exam Neurological exam: Present: altered - Psychiatric Psychiatric exam: Absent: agitated, anxious - Skin Skin exam: Present: dry, warm Internal Medicine - CN: Reslt - Labs CBC & Chem 7: 05/03/17 05:18 05/03/17 12:38 Labs: Short CBC 05/03/17 Range/Units 05:18 WBC 13.7 H (4.3-11.1) K/mcL Hgb 14.1 (12.9-16.9) g/dL Hct 46.9 (37.5-50.1) % Plt Count 136 L (140-400) K/mcL Neutrophils # 12.0 H (1.6-8.9) K/mcL BMP 05/02/17 05/03/17 05/03/17 18:59 05:18 12:38 Sodium 159 H 160 H* 160 H* Potassium 4.8 H 4.7 H 5.2 H Chloride 123 H 125 H 124 H Carbon Dioxide 29 26 28 BUN 56 H 55 H 59 H Creatinine 1.58 H 1.71 H 1.94 H Glucose 127 H 144 H 215 H Calcium 9.3 9.1 8.8 - ABG Interpretation ABG results: ABG ABG pH 7.37 pH Units (7.32-7.45) 05/03/17 08:15 ABG pCO2 52 mmHg (35-45) H 05/03/17 08:15 ABG pO2 64 mmHg (85-104) L 05/03/17 08:15 ABG O2 Saturation 91 % (95-98) L 05/03/17 08:15 PT/INR, D-dimer PT 13.5 Seconds (9.4-12.1) H 05/02/17 13:42 D-Dimer 19671 ng/mLFEU (0-500) H 05/01/17 15:46 - Impressions Impressions Chest X-Ray 05/02/17 20:01 IMPRESSION: New airspace disease on the right suspicious for pneumonia. This may be related to aspiration. D/ / Marcus López MD / Marcus López MD Interpreting Provider: Marcus López MD Consult Discharge Plan - Plan Referrals: Wm Albert MD [Primary Care Provider] - Palliative Quality Palliative Quality: Screen for Code Status: Yes, Screen for Goals of Care: Yes, Screen for Pain: Yes, If Pain Regimen Started, Initiate Bowel Regimen: Yes, Screen for Nausea/Vomitting: Yes Code Status: 05/01/17 17:17 Resuscitation Status: Active [RES] Routine Comment: Resuscitation Status: [id number]
[2017-05-03] MEDS: *HR* Morphine 2 MG/ML SYRINGE IVP PRN ×2 (17:46→20:28)
[2017-05-03 20:09] LABS: Calcium 8.6 mg/dL (8.6-10.8); Potassium 4.6 mEq/L (3.5-4.5)
[2017-05-03] MEDS: Haloperidol Lactate 5 MG/ML VIAL IVP PRN (22:11)
[2017-05-04] MEDS: D5% in 0.45% NACL 1,000 ML IVC SCH (00:50)
[2017-05-04] MEDS: Piperacillin/Tazobactam 3.375 GM in D5% in Water (Mini-Bag+) 100 ML IVPB SCH ×3 (00:51→15:51)
[2017-05-04] MEDS: *HR* Morphine 2 MG/ML SYRINGE IVP PRN ×2 (04:50→14:57)
[2017-05-04] MEDS ORDERED: Desmopressin 2 MCG in 0.9 % Sodium Chloride 50 ML IVPB SCH (09:00)
[2017-05-04 09:24] LABS: Platelet Count 114 K/mcL (140-400)
[2017-05-04 09:25] LABS: Hematocrit 47.6 % (37.5-50.1); Hemoglobin 13.8 g/dL (12.9-16.9); Mean Corpuscular Hemoglobin 29.4 pg (28.0-33.3); Mean Corpuscular Volume 101.5 fL (83.0-100.0); Mean Platelet Volume 12.3 fL (9.4-12.4); Red Blood Count 4.69 M/mcL (4.19-5.50); Red Cell Distribution Width 14.9 % (11.5-14.5)
[2017-05-04 09:28] LABS: Albumin/Globulin Ratio 0.5 (1.1-2.2); Bilirubin,Total 0.6 mg/dL (0.2-1.2); Calcium 8.7 mg/dL (8.6-10.8); Globulin 3.9 g/dL (2.4-3.5); Magnesium 2.4 mg/dL (1.6-2.6); Potassium 4.6 mEq/L (3.5-4.5); Total Protein 5.9 g/dL (6.0-8.3)
[2017-05-04] MEDS: Pantoprazole 40 MG VIAL IVP SCH (09:50)
[2017-05-04] MEDS: Haloperidol Lactate 5 MG/ML VIAL IVP PRN (09:51)
[2017-05-04] MEDS: D5% in 0.9% NACL 1,000 ML IVC SCH ×2 (10:16→18:47)
[2017-05-04 10:40] LABS: Hematocrit 48.5 % (37.5-50.1); Hemoglobin 14.4 g/dL (12.9-16.9); Mean Corpuscular HGB Conc 29.7 g/dL (31.6-35.5); Mean Platelet Volume 11.8 fL (9.4-12.4); Nucleated Red Blood Cells 0.3 /100 WBC (0); Platelet Count 116 K/mcL (140-400); Red Cell Distribution Width 14.9 % (11.5-14.5)
[2017-05-04 10:51] LABS: Calcium 8.8 mg/dL (8.6-10.8); Potassium 4.4 mEq/L (3.5-4.5)
[2017-05-04 11:05] LABS: Monocytes # 0.7 K/mcL (0.0-1.3); Neutrophils # 15.5 K/mcL (1.6-8.9); Platelet Estimate Slight Decrease (Normal)
[2017-05-04] MEDS: Vancomycin 1,250 MG in D5% in Water 250 ML IVPB SCH (11:38)
--- NOTE | 2017-05-04 12:01 | Internal Med Progress Note ---
Date of Encounter: 05/04/17 Time of Encounter: 08:58 - Assessment and plan (1) Altered mental status Current Visit: No Status: Acute Assessment and plan: AMS likely 2/2 to acute encephalopathy Multifactorial in nature, possibly 2/2 to CVA vs. hypxoemia cannot be confirmed Per palliative, the patient cannot tolerate feeding at this time and the family does not seem to be interested in any kind of artificial feeding however this is an ongoing discussion. PLAN: Poor prognosis Qualifiers: Altered mental status type: unspecified Qualified Code(s): R41.82 - Altered mental status, unspecified (2) Hypernatremia Current Visit: Yes Status: Acute (3) Elevated troponin Current Visit: Yes Status: Acute (4) CAD (coronary artery disease) Current Visit: Yes Status: Chronic Qualifiers: Coronary Disease-Associated Artery/Lesion type: [place] artery [place] vs. transplanted heart: [place] heart Associated angina: without angina Qualified Code(s): I25.10 - Atherosclerotic heart disease of [place] coronary artery without angina pectoris (5) DVT prophylaxis Current Visit: Yes Status: Acute (6) Difficulty clearing secretions Current Visit: Yes Status: Acute (7) Poor prognosis Current Visit: Yes Status: Acute - Subjective Interval history: No acute events overnight. Resident MD spoke to morning sitter, states pt continues to exhibit agitated movements periodically. - Constitutional Vitals: Temp Pulse Resp BP Pulse Ox 97.5 F L 73 14 142/57 85 05/04/17 03:10 05/04/17 07:00 05/04/17 07:00 05/04/17 07:00 05/04/17 07:00 General appearance: Present: mild distress (periodically. Unable to assess A&O status 2/2 to patient's verbal unresponsiveness. Pt does make grunts that appear as attempts to communicate.) Internal Medicine: Result - Labs CBC & Chem 7: 05/04/17 10:19 05/04/17 10:19 Labs: Short CBC 05/04/17 05/04/17 Range/Units 08:41 10:19 WBC 17.4 H 17.2 H (4.3-11.1) K/mcL Hgb 13.8 14.4 (12.9-16.9) g/dL Hct 47.6 48.5 (37.5-50.1) % Plt Count 114 L 116 L (140-400) K/mcL Neutrophils # 15.5 H (1.6-8.9) K/mcL BMP 05/03/17 05/03/17 05/04/17 12:38 19:46 08:41 Sodium 160 H* 156 H 159 H Potassium 5.2 H 4.6 H 4.6 H Chloride 124 H 122 H 123 H Carbon Dioxide 28 29 31 H BUN 59 H 61 H 55 H Creatinine 1.94 H 1.86 H 1.77 H Glucose 215 H 182 H 133 H Calcium 8.8 8.6 8.7 05/04/17 10:19 Sodium 159 H Potassium 4.4 Chloride 123 H Carbon Dioxide 32 H BUN 53 H Creatinine 1.67 H Glucose 108 H Calcium 8.8 Liver Function 05/04/17 Range/Units 08:41 Total Bilirubin 0.6 (0.2-1.2) mg/dL AST 180 H (5-34) Units/L ALT 113 H (0-55) Units/L Alkaline Phosphatase 83 (38-126) Units/L Albumin 2.0 L (3.5-5.0) g/dL - ABG Interpretation ABG results: ABG ABG pH 7.37 pH Units (7.32-7.45) 05/03/17 08:15 ABG pCO2 52 mmHg (35-45) H 05/03/17 08:15 ABG pO2 64 mmHg (85-104) L 05/03/17 08:15 ABG O2 Saturation 91 % (95-98) L 05/03/17 08:15 PT/INR, D-dimer PT 13.5 Seconds (9.4-12.1) H 05/02/17 13:42 D-Dimer [id number] ng/mLFEU (0-500) H 05/01/17 15:46 Consult Discharge Plan - Plan Referrals: Wm Albert MD [Primary Care Provider] -
[2017-05-04] MEDS ORDERED: Aminoglycoside Consult 1 EACH MC ONE (14:29)
[2017-05-04] MEDS ORDERED: Vancomycin 500 MG in D5% in Water (Mini-Bag+) 100 ML IVPB ONE (14:55)
--- NOTE | 2017-05-04 15:10 | Palliative Progress Note ---
Date of Encounter: 05/04/17 Time of Encounter: 15:00 - Assessment and plan (1) Dyspnea Current Visit: Yes Status: Acute Assessment and plan: Patient currently continuing IV antibiotic therapy, and also getting supportive oxygen/nebs. Will continue to follow. He is getting intermittent Morphine as well, which appears to settle him down a bit. Qualifiers: Dyspnea type: unspecified Qualified Code(s): R06.00 - Dyspnea, unspecified (2) Goals of care, counseling/discussion Current Visit: Yes Status: Acute Assessment and plan: I met with earlier today, and I attended meeting with Dr. nAderson, pt primary nurse Karthik, pt , daughter, and niece this afternoon. Family updated on clinical status by Dr. Anderson. Niece with a lot of questions regarding diagnostic testing and treatment options. Dr. Anderson explained those are limited based on the issues with his kidney function and bleeding. At this point, family staying the course and continuing current treatment. Will continue to follow closely. (3) Altered mental status Current Visit: No Status: Acute Qualifiers: Altered mental status type: unspecified Qualified Code(s): R41.82 - Altered mental status, unspecified (4) Acute deep vein thrombosis (DVT) of left femoral vein Current Visit: Yes Status: Acute (5) Acute deep vein thrombosis (DVT) of right popliteal vein Current Visit: Yes Status: Acute - Time Spent With Patient Total time spent is greater than 50% in coordination of care (as documented) at patient's floor/unit and/or counseling patient: - Subjective Interval history: Patient remains with altered mental status, hypernatremia despite treatment, and hypoxia even with 100% NRB mask. Liver enzymes elevated as well today. Restless at times. Appears dyspneic. , daughter, and niece at bedside. - Constitutional Vitals: Abnormal lab results WBC 17.2 K/mcL (4.3-11.1) H 05/04/17 10:19 MCV 101.0 fL (83.0-100.0) H 05/04/17 10:19 MCHC 29.7 g/dL (31.6-35.5) L 05/04/17 10:19 RDW 14.9 % (11.5-14.5) H 05/04/17 10:19 Plt Count 116 K/mcL (140-400) L 05/04/17 10:19 Band Neutrophils % 6.0 % (0-4) H 05/04/17 10:19 Neutrophils # 15.5 K/mcL (1.6-8.9) H 05/04/17 10:19 Nucleated RBCs/100 WBC 0.3 /100 WBC (0) H 05/04/17 10:19 Platelet Estimate Slight Decrease (Normal) L 05/04/17 10:19 PT 13.5 Seconds (9.4-12.1) H 05/02/17 13:42 APTT 217.9 Seconds (26.0-36.0) H* D 05/02/17 18:59 D-Dimer [id number] ng/mLFEU (0-500) H 05/01/17 15:46 Heparin Anti-Xa, Unfract 1.12 IU/mL (0.30-0.70) H* 05/02/17 18:59 ABG pCO2 52 mmHg (35-45) H 05/03/17 08:15 ABG pO2 64 mmHg (85-104) L 05/03/17 08:15 ABG HCO3 30 mEq/L (21-27) H 05/03/17 08:15 ABG Total CO2 31.7 mEq/L (20-26) H 05/03/17 08:15 ABG O2 Saturation 91 % (95-98) L 05/03/17 08:15 ABG Base Excess 3.5 mEq/L (-2.0 to 3.0) H 05/03/17 08:15 Sodium 159 mEq/L (136-145) H 05/04/17 10:19 Chloride 123 mEq/L (98-109) H 05/04/17 10:19 Carbon Dioxide 32 mEq/L (19-29) H 05/04/17 10:19 BUN 53 mg/dL (8-26) H 05/04/17 10:19 Creatinine 1.67 mg/dL (0.72-1.25) H 05/04/17 10:19 Est GFR ( Amer) 47 (> 60) L 05/04/17 10:19 Est GFR (Non-Af Amer) 39 (> 60) L 05/04/17 10:19 BUN/Creatinine Ratio 32 (6-26) H 05/04/17 10:19 Glucose 108 mg/dL (70-99) H 05/04/17 10:19 POC Glucose 143 (58-89) H 05/03/17 23:02 Calculated Osmolality 343 (280-300) H 05/04/17 10:19 AST 180 Units/L (5-34) H 05/04/17 08:41 ALT 113 Units/L (0-55) H 05/04/17 08:41 Ammonia 16 mcmol/L (18-72) L 05/01/17 15:46 Troponin I 0.05 ng/mL (0-0.03) H* 05/02/17 01:08 Serum Total Protein 5.9 g/dL (6.0-8.3) L 05/04/17 08:41 Albumin 2.0 g/dL (3.5-5.0) L 05/04/17 08:41 Globulin 3.9 g/dL (2.4-3.5) H 05/04/17 08:41 Albumin/Globulin Ratio 0.5 (1.1-2.2) L 05/04/17 08:41 HDL Cholesterol 31 mg/dL (40-59) L 05/02/17 01:08 Urine Blood Small (Negative) H 05/01/17 10:00 Urine Bilirubin Small (Negative) H 05/01/17 10:00 Urine Microscopic RBC 5-15 per hpf (0-3) H 05/01/17 10:00 Ur Squamous Epith Cells Many per lpf (None-Few) H 05/01/17 10:00 General appearance: Present: mild distress - Respiratory Additional comments: Rhonchi throughout all lung carias. - Cardiovascular Cardiovascular exam: Present: +S1, +S2 - GI/Abdominal GI/Abdominal exam: Present: hypoactive bowel sounds, soft - Additional comments: Viramontes catheter in place with dark yellow urine - Extremities Exam Additional comments: generalized edema to upper extremities - Neurological Exam Additional comments: Opens eyes occasionally. Is following command to squeeze hand this afternoon. - Skin Skin exam: Present: dry, warm Palliative Quality Palliative Quality: Screen for Code Status: Yes, Screen for Goals of Care: Yes, Screen for Pain: Yes, If Pain Regimen Started, Initiate Bowel Regimen: Yes, Screen for Nausea/Vomitting: Yes Code Status: 05/01/17 17:17 Resuscitation Status: Active [RES] Routine Comment: Resuscitation Status: [id number] - Labs CBC & Chem 7: 05/04/17 10:19 05/04/17 10:19 Labs: Laboratory Results - last 24 hr 05/03/17 05/03/17 05/03/17 05:38 11:32 13:38 WBC RBC Hgb Hct MCV MCH MCHC RDW Plt Count MPV Seg Neutrophils % Band Neutrophils % Lymphocytes % Monocytes % Neutrophils # Lymphocytes # Monocytes # Nucleated RBCs/100 WBC Platelet Estimate Sodium Potassium Chloride Carbon Dioxide BUN Creatinine Est GFR ( Amer) Est GFR (Non-Af Amer) BUN/Creatinine Ratio Glucose POC Glucose 129 H 161 H Calculated Osmolality Calcium Magnesium Total Bilirubin AST ALT Alkaline Phosphatase Serum Total Protein Albumin Globulin Albumin/Globulin Ratio Urine Osmolality 589 Vancomycin Trough 05/03/17 05/03/17 05/03/17 17:49 19:46 23:02 WBC RBC Hgb Hct MCV MCH MCHC RDW Plt Count MPV Seg Neutrophils % Band Neutrophils % Lymphocytes % Monocytes % Neutrophils # Lymphocytes # Monocytes # Nucleated RBCs/100 WBC Platelet Estimate Sodium 156 H Potassium 4.6 H Chloride 122 H Carbon Dioxide 29 BUN 61 H Creatinine 1.86 H Est GFR ( Amer) 42 L Est GFR (Non-Af Amer) 35 L BUN/Creatinine Ratio 33 H Glucose 182 H POC Glucose 140 H 143 H Calculated Osmolality 344 H Calcium 8.6 Magnesium Total Bilirubin AST ALT Alkaline Phosphatase Serum Total Protein Albumin Globulin Albumin/Globulin Ratio Urine Osmolality Vancomycin Trough 05/04/17 05/04/17 05/04/17 08:41 08:41 10:19 WBC 17.4 H 17.2 H RBC 4.69 4.80 Hgb 13.8 14.4 Hct 47.6 48.5 MCV 101.5 H 101.0 H MCH 29.4 30.0 MCHC 29.0 L 29.7 L RDW 14.9 H 14.9 H Plt Count 114 L 116 L MPV 12.3 11.8 Seg Neutrophils % 84.0 Band Neutrophils % 6.0 H Lymphocytes % 6.0 Monocytes % 4.0 Neutrophils # 15.5 H Lymphocytes # 1.0 Monocytes # 0.7 Nucleated RBCs/100 WBC 0.3 H Platelet Estimate Slight Decrease L Sodium 159 H Potassium 4.6 H Chloride 123 H Carbon Dioxide 31 H BUN 55 H Creatinine 1.77 H Est GFR ( Amer) 44 L Est GFR (Non-Af Amer) 37 L BUN/Creatinine Ratio 31 H Glucose 133 H POC Glucose Calculated Osmolality 345 H Calcium 8.7 Magnesium 2.4 Total Bilirubin 0.6 AST 180 H ALT 113 H Alkaline Phosphatase 83 Serum Total Protein 5.9 L Albumin 2.0 L Globulin 3.9 H Albumin/Globulin Ratio 0.5 L Urine Osmolality Vancomycin Trough 05/04/17 05/04/17 10:19 10:19 WBC RBC Hgb Hct MCV MCH MCHC RDW Plt Count MPV Seg Neutrophils % Band Neutrophils % Lymphocytes % Monocytes % Neutrophils # Lymphocytes # Monocytes # Nucleated RBCs/100 WBC Platelet Estimate Sodium 159 H Potassium 4.4 Chloride 123 H Carbon Dioxide 32 H BUN 53 H Creatinine 1.67 H Est GFR ( Amer) 47 L Est GFR (Non-Af Amer) 39 L BUN/Creatinine Ratio 32 H Glucose 108 H POC Glucose Calculated Osmolality 343 H Calcium 8.8 Magnesium Total Bilirubin AST ALT Alkaline Phosphatase Serum Total Protein Albumin Globulin Albumin/Globulin Ratio Urine Osmolality Vancomycin Trough 11.8 - ABG Interpretation ABG results: ABG ABG pH 7.37 pH Units (7.32-7.45) 05/03/17 08:15 ABG pCO2 52 mmHg (35-45) H 05/03/17 08:15 ABG pO2 64 mmHg (85-104) L 05/03/17 08:15 ABG O2 Saturation 91 % (95-98) L 05/03/17 08:15 PT/INR, D-dimer PT 13.5 Seconds (9.4-12.1) H 05/02/17 13:42 D-Dimer [id number] ng/mLFEU (0-500) H 05/01/17 15:46 Consult Discharge Plan - Plan Referrals: Wm Albert MD [Primary Care Provider] -
[2017-05-04 15:25] LABS: Albumin 2.1 g/dL (3.5-5.0); Calcium 8.8 mg/dL (8.6-10.8); Phosphorous 2.8 mg/dL (2.3-4.7); Potassium 4.6 mEq/L (3.5-4.5)
--- NOTE | 2017-05-04 15:57 | Internal Med Progress Note ---
<AveryPoppy - Last Filed: 05/04/17 16:34> Date of Encounter: 05/04/17 Time of Encounter: 15:54 - Assessment and plan (1) Altered mental status Current Visit: No Status: Acute Assessment and plan: AMS likely 2/2 to acute encephalopathy Multifactorial in nature, possibly 2/2 to CVA vs. hypxoemia cannot be confirmed Per palliative, the patient cannot tolerate feeding at this time and the family does not seem to be interested in any kind of artificial feeding however this is an ongoing discussion. PLAN: Palliative on consult, appreciate recs Qualifiers: Altered mental status type: stupor Qualified Code(s): R40.1 - Stupor (2) Hypernatremia Current Visit: Yes Status: Acute Assessment and plan: D5 with 0.45 NacL at 125 mL/hr Today at 157, down from 162 on 05/01/17 PLAN: Continue to monitor sodium - Na q8 hr ordered. Plan for timed BMP (3) Liver function failure Current Visit: Yes Status: Acute Assessment and plan: LFTs > than 10 times the upper limit of normal, hepatic encephalopathy Likely 2/2 to hepatic ischemia, in setting of Hypercoagulable State Qualifiers: Liver failure chronicity: subacute Hepatic coma status: without hepatic coma Qualified Code(s): K72.00 - Acute and subacute hepatic failure without coma (4) CAD (coronary artery disease) Current Visit: Yes Status: Chronic Assessment and plan: Pt on continuous telemetry HR 80s to ~ 110s while MD in room in AM Qualifiers: Coronary Disease-Associated Artery/Lesion type: [place] artery [place] vs. transplanted heart: [place] heart Associated angina: without angina Qualified Code(s): I25.10 - Atherosclerotic heart disease of [place] coronary artery without angina pectoris (5) Difficulty clearing secretions Current Visit: Yes Status: Acute Assessment and plan: Per respiratory, pt likel not candidate for continued deep suction to increased risk of trauma (6) DVT prophylaxis Current Visit: Yes Status: Acute Assessment and plan: Bilateral lower extremity venous duplex exam completed. Positive DVT in right Pop V and Left Gastroc V Heparin d/c due to bleeding two nights ago (7) Poor prognosis Current Visit: Yes Status: Acute Assessment and plan: Palliative consult, see note for details Pt DNR- ComfortCare-ArrestDNI - Subjective Interval history: AM: No acute events overnight. Resident MD spoke to morning sitter, states pt continues to exhibit agitated movements periodically. Afternoon: Per nurse, pt remains hypoxic on 100% Non-rebreather mask. - Constitutional Vitals: Temp Pulse Resp BP Pulse Ox 97.5 F L 110 21 148/71 85 05/04/17 03:10 05/04/17 15:00 05/04/17 15:00 05/04/17 15:00 05/04/17 07:00 General appearance: Present: mild distress (periodically. Unable to assess A&O status 2/2 to patient's verbal unresponsiveness. Pt does make grunts that appear as attempts to communicate.). Absent: answers questions appropriately - Head Head exam: Present: normocephalic Additional comments: Intermittent agonal gasping, on non-rebreather ask, that resolves spontaneously - Eye Eye exam: Present: PERRL, conjuntiva pink, sclera anicteric Pupils: Present: PERRL Additional comments: does not open eyes to calling of his name - Respiratory Respiratory exam: Present: accessory muscle use, chest wall tenderness, prolonged expiratory phase, respiratory distress. Absent: wheezes Additional comments: periodic agonal breathing] - Cardiovascular Cardiovascular exam: Present: +S1, +S2. Absent: diastolic murmur, systolic murmur - GI/Abdominal GI/Abdominal exam: Present: diminished bowel sounds, soft. Absent: distended, firm - Neurological Exam Neurological exam: Present: altered, speech deficit Additional comments: UE: R: biceps +1 / L biceps + 2 . LE: Difficult to assess given's patient intermittent irregular movements - Psychiatric Additional comments: unable to assess due to patient's condition Internal Medicine: Result - Labs CBC & Chem 7: 05/04/17 10:19 05/04/17 15:05 Labs: Short CBC 05/04/17 05/04/17 Range/Units 08:41 10:19 WBC 17.4 H 17.2 H (4.3-11.1) K/mcL Hgb 13.8 14.4 (12.9-16.9) g/dL Hct 47.6 48.5 (37.5-50.1) % Plt Count 114 L 116 L (140-400) K/mcL Neutrophils # 15.5 H (1.6-8.9) K/mcL BMP 05/03/17 05/04/17 05/04/17 19:46 08:41 10:19 Sodium 156 H 159 H 159 H Potassium 4.6 H 4.6 H 4.4 Chloride 122 H 123 H 123 H Carbon Dioxide 29 31 H 32 H BUN 61 H 55 H 53 H Creatinine 1.86 H 1.77 H 1.67 H Glucose 182 H 133 H 108 H Calcium 8.6 8.7 8.8 05/04/17 15:05 Sodium 157 H Potassium 4.6 H Chloride 122 H Carbon Dioxide 29 BUN 52 H Creatinine 1.81 H Glucose 172 H Calcium 8.8 Liver Function 05/04/17 05/04/17 Range/Units 08:41 15:05 Total Bilirubin 0.6 (0.2-1.2) mg/dL AST 180 H (5-34) Units/L ALT 113 H (0-55) Units/L Alkaline Phosphatase 83 (38-126) Units/L Albumin 2.0 L 2.1 L (3.5-5.0) g/dL - ABG Interpretation ABG results: ABG ABG pH 7.37 pH Units (7.32-7.45) 05/03/17 08:15 ABG pCO2 52 mmHg (35-45) H 05/03/17 08:15 ABG pO2 64 mmHg (85-104) L 05/03/17 08:15 ABG O2 Saturation 91 % (95-98) L 05/03/17 08:15 PT/INR, D-dimer PT 13.5 Seconds (9.4-12.1) H 05/02/17 13:42 D-Dimer [id number] ng/mLFEU (0-500) H 05/01/17 15:46 Consult Discharge Plan - Plan Referrals: Wm Albert MD [Primary Care Provider] - <Chad Anderson - Last Filed: 05/04/17 19:09> Date of Encounter: 05/04/17 - Assessment and plan (1) Acute metabolic encephalopathy Current Visit: Yes Status: Acute (2) Hypernatremia Current Visit: Yes Status: Acute (3) Acute deep vein thrombosis (DVT) of right popliteal vein Current Visit: Yes Status: Acute (4) Acute deep vein thrombosis (DVT) of left femoral vein Current Visit: Yes Status: Acute (5) CAD (coronary artery disease) Current Visit: Yes Status: Chronic Qualifiers: Coronary Disease-Associated Artery/Lesion type: [place] artery [place] vs. transplanted heart: [place] heart Associated angina: without angina Qualified Code(s): I25.10 - Atherosclerotic heart disease of [place] coronary artery without angina pectoris (6) Hypertension Current Visit: Yes Status: Chronic Qualifiers: Hypertension type: essential hypertension Qualified Code(s): I10 - Essential (primary) hypertension (7) Hypothyroidism Current Visit: Yes Status: Chronic Qualifiers: Hypothyroidism type: acquired Qualified Code(s): E03.9 - Hypothyroidism, unspecified (8) Acute renal failure due to tubular necrosis Current Visit: Yes Status: Suspected (9) Pneumonia Current Visit: Yes Status: Acute Qualifiers: Pneumonia type: aspiration pneumonia Aspiration pneumonia type: due to gastric secretions Laterality: right Lung location: upper lobe of lung Qualified Code(s): J69.0 - Pneumonitis due to inhalation of food and vomit (10) Acute respiratory failure with hypoxia Current Visit: Yes Status: Acute - Constitutional Vitals: Temp Pulse Resp BP Pulse Ox 100.1 F H 87 8 79/35 82 05/04/17 18:50 05/04/17 18:50 05/04/17 18:50 05/04/17 18:50 05/04/17 18:50 Internal Medicine: Result - Labs CBC & Chem 7: 05/04/17 10:19 05/04/17 15:05 Labs: Short CBC 05/04/17 05/04/17 Range/Units 08:41 10:19 WBC 17.4 H 17.2 H (4.3-11.1) K/mcL Hgb 13.8 14.4 (12.9-16.9) g/dL Hct 47.6 48.5 (37.5-50.1) % Plt Count 114 L 116 L (140-400) K/mcL Neutrophils # 15.5 H (1.6-8.9) K/mcL BMP 05/03/17 05/04/17 05/04/17 19:46 08:41 10:19 Sodium 156 H 159 H 159 H Potassium 4.6 H 4.6 H 4.4 Chloride 122 H 123 H 123 H Carbon Dioxide 29 31 H 32 H BUN 61 H 55 H 53 H Creatinine 1.86 H 1.77 H 1.67 H Glucose 182 H 133 H 108 H Calcium 8.6 8.7 8.8 05/04/17 15:05 Sodium 157 H Potassium 4.6 H Chloride 122 H Carbon Dioxide 29 BUN 52 H Creatinine 1.81 H Glucose 172 H Calcium 8.8 Liver Function 05/04/17 05/04/17 Range/Units 08:41 15:05 Total Bilirubin 0.6 (0.2-1.2) mg/dL AST 180 H (5-34) Units/L ALT 113 H (0-55) Units/L Alkaline Phosphatase 83 (38-126) Units/L Albumin 2.0 L 2.1 L (3.5-5.0) g/dL - ABG Interpretation ABG results: ABG ABG pH 7.37 pH Units (7.32-7.45) 05/03/17 08:15 ABG pCO2 52 mmHg (35-45) H 05/03/17 08:15 ABG pO2 64 mmHg (85-104) L 05/03/17 08:15 ABG O2 Saturation 91 % (95-98) L 05/03/17 08:15 PT/INR, D-dimer PT 13.5 Seconds (9.4-12.1) H 05/02/17 13:42 D-Dimer [id number] ng/mLFEU (0-500) H 05/01/17 15:46 - Attending Attestation I examined this patient and my medical decision-making was reviewed with the Resident Physician on 05/04/17. I agree with the documented findings, disposition and treatment plan as described except to the extent set forth below. Mr. Rubio is currently admitted for acute resp failure and hypernatremia. He remains high risk due to potential for worsening resp status. Mr. Rubio remains unresponsive for the most part though he did squeeze my hand. Has had higher oxygen requirements today. Febrile as well. Family at bedside and I had a long conversation with them regarding all the issues. Exam Unresponsive Mucus membranes dry Heart reg Lungs with rhonchi bilaterally Abd soft Edema present I/P 1. Hypoxia 2. Hypernatremia Further diagnoses and plan as above.
[2017-05-04] MEDS: Acetaminophen 650 MG RECTAL SUPP RC PRN (17:03)
[2017-05-04 20:34] LABS: Calcium 8.7 mg/dL (8.6-10.8)
[2017-05-04 20:40] LABS: Potassium 6.1 mEq/L (3.5-4.5)
[2017-05-05] MEDS: D5% in 0.9% NACL 1,000 ML IVC SCH (01:33)
[2017-05-05] MEDS: Piperacillin/Tazobactam 3.375 GM in D5% in Water (Mini-Bag+) 100 ML IVPB SCH (01:36)
--- NOTE | 2017-05-05 04:36 | Internal Med Progress Note ---
<AveryPoppy - Last Filed: 05/05/17 14:36> Date of Encounter: 05/05/17 Time of Encounter: 08:44 (approx.) - Assessment and plan (1) Altered mental status Status: Acute Assessment and plan: Pt appears unresponsive to verbal commands on exam Qualifiers: Altered mental status type: stupor Qualified Code(s): R40.1 - Stupor (2) Hypernatremia Status: Acute Assessment and plan: Chronic Pt converted to DNR- Comfort Care May hold Na q6 (3) Liver function failure Status: Acute Assessment and plan: LFTs > than 10 times the upper limit of normal, hepatic encephalopathy Likely 2/2 to hepatic ischemia, in setting of Hypercoagulable State Qualifiers: Liver failure chronicity: subacute Hepatic coma status: without hepatic coma Qualified Code(s): K72.00 - Acute and subacute hepatic failure without coma (4) Difficulty clearing secretions Status: Acute Assessment and plan: Pt unable to clear upper secretions due to altered mental status change Per respiratory, pt likely not candidate for deep suction due to increased risk of trauma Continue nonpharmacologic interventions, such as positioning to facilitate drainage and gentle anterior suctioning (5) CAD (coronary artery disease) Status: Chronic Assessment and plan: Pt on continuous telemetry overnight Qualifiers: Coronary Disease-Associated Artery/Lesion type: [place] artery [place] vs. transplanted heart: [place] heart Associated angina: without angina Qualified Code(s): I25.10 - Atherosclerotic heart disease of [place] coronary artery without angina pectoris (6) DVT prophylaxis Status: Acute Assessment and plan: Bilateral lower extremity venous duplex exam completed. Positive DVT in right Pop V and Left Gastroc V Heparin d/c due to bleeding (7) Acute deep vein thrombosis (DVT) of left femoral vein Status: Acute (8) Acute deep vein thrombosis (DVT) of right popliteal vein Status: Acute (9) MYRON (acute kidney injury) Status: Acute (10) Poor prognosis Status: Acute Assessment and plan: Appreciate overnight RN notes conveying family wishes made at night Continue morphine use for dyspnea for comfort Palliative consult, see note for details. Appreciate recs. Palliative consult met with family this morning to discuss prognosis Code Status: DNR- Comfort Care - Subjective Interval history: Per nurses' notes: In evening, RR was noted at 10 with BP of 79/35, and patient was mottled to above knees, with family notified of patient's condition. 2245 - Limited assessment was completed, according to family wishes. Family requested medications to not be given at that time. RN spoke with family about giving medications if patient becomes restless and family was okay with medications to comfort the patient. 2338 Family wished Q6 blood glucose test not completed at the time. AM: Pt's family in room with palliative consult team. Family elects for change of status to DNR- Comfort Care. - Constitutional Vitals: Temp Pulse Resp BP Pulse Ox 100.1 F H 87 8 79/35 82 05/04/17 18:50 05/04/17 18:50 05/04/17 18:50 05/04/17 18:50 05/04/17 18:50 General appearance: Present: mild distress ( Unable to assess A&O status 2/2 to patient's verbal unresponsiveness. ), underweight. Absent: answers questions appropriately - Head Head exam: Present: atraumatic, normocephalic - Respiratory Respiratory exam: Present: accessory muscle use Additional comments: continued intermittent agonal breathing - Cardiovascular Cardiovascular exam: Present: +S1, +S2 - Expanded Lower Extremities Exam Knee exam: Absent: warmth (mottled knees b/l ) Internal Medicine: Result - Labs CBC & Chem 7: 05/04/17 10:19 05/04/17 19:58 Labs: Short CBC 05/04/17 05/04/17 Range/Units 08:41 10:19 WBC 17.4 H 17.2 H (4.3-11.1) K/mcL Hgb 13.8 14.4 (12.9-16.9) g/dL Hct 47.6 48.5 (37.5-50.1) % Plt Count 114 L 116 L (140-400) K/mcL Neutrophils # 15.5 H (1.6-8.9) K/mcL BMP 05/04/17 05/04/17 05/04/17 08:41 10:19 15:05 Sodium 159 H 159 H 157 H Potassium 4.6 H 4.4 4.6 H Chloride 123 H 123 H 122 H Carbon Dioxide 31 H 32 H 29 BUN 55 H 53 H 52 H Creatinine 1.77 H 1.67 H 1.81 H Glucose 133 H 108 H 172 H Calcium 8.7 8.8 8.8 05/04/17 19:58 Sodium 157 H Potassium 6.1 H D Chloride 122 H Carbon Dioxide 30 H BUN 55 H Creatinine 2.55 H Glucose 208 H Calcium 8.7 Liver Function 05/04/17 05/04/17 Range/Units 08:41 15:05 Total Bilirubin 0.6 (0.2-1.2) mg/dL AST 180 H (5-34) Units/L ALT 113 H (0-55) Units/L Alkaline Phosphatase 83 (38-126) Units/L Albumin 2.0 L 2.1 L (3.5-5.0) g/dL - ABG Interpretation ABG results: ABG ABG pH 7.37 pH Units (7.32-7.45) 05/03/17 08:15 ABG pCO2 52 mmHg (35-45) H 05/03/17 08:15 ABG pO2 64 mmHg (85-104) L 05/03/17 08:15 ABG O2 Saturation 91 % (95-98) L 05/03/17 08:15 PT/INR, D-dimer PT 13.5 Seconds (9.4-12.1) H 05/02/17 13:42 D-Dimer [id number] ng/mLFEU (0-500) H 05/01/17 15:46 Consult Discharge Plan - Plan Referrals: Wm Albert MD [Primary Care Provider] - <Chad Anderson - Last Filed: 05/05/17 18:53> Date of Encounter: 05/05/17 - Assessment and plan (1) Acute respiratory failure with hypoxia Status: Acute (2) Acute metabolic encephalopathy Status: Acute (3) Hypernatremia Status: Acute (4) Pneumonia Status: Acute Qualifiers: Pneumonia type: aspiration pneumonia Aspiration pneumonia type: due to gastric secretions Laterality: right Lung location: upper lobe of lung Qualified Code(s): J69.0 - Pneumonitis due to inhalation of food and vomit (5) Acute deep vein thrombosis (DVT) of right popliteal vein Status: Acute (6) Acute deep vein thrombosis (DVT) of left femoral vein Status: Acute (7) CAD (coronary artery disease) Status: Chronic Qualifiers: Coronary Disease-Associated Artery/Lesion type: [place] artery [place] vs. transplanted heart: [place] heart Associated angina: without angina Qualified Code(s): I25.10 - Atherosclerotic heart disease of [place] coronary artery without angina pectoris (8) Hypertension Status: Chronic Qualifiers: Hypertension type: essential hypertension Qualified Code(s): I10 - Essential (primary) hypertension (9) Hypothyroidism Status: Chronic Qualifiers: Hypothyroidism type: acquired Qualified Code(s): E03.9 - Hypothyroidism, unspecified (10) Acute renal failure due to tubular necrosis Status: Suspected - Constitutional Vitals: Temp Pulse Resp BP Pulse Ox 97.2 F L 50 8 77/39 95 05/05/17 06:51 05/05/17 06:51 05/05/17 06:51 05/05/17 06:51 05/05/17 06:51 Internal Medicine: Result - Labs CBC & Chem 7: 05/04/17 10:19 05/04/17 19:58 Labs: BMP 05/04/17 19:58 Sodium 157 H Potassium 6.1 H D Chloride 122 H Carbon Dioxide 30 H BUN 55 H Creatinine 2.55 H Glucose 208 H Calcium 8.7 - ABG Interpretation ABG results: ABG ABG pH 7.37 pH Units (7.32-7.45) 05/03/17 08:15 ABG pCO2 52 mmHg (35-45) H 05/03/17 08:15 ABG pO2 64 mmHg (85-104) L 05/03/17 08:15 ABG O2 Saturation 91 % (95-98) L 05/03/17 08:15 PT/INR, D-dimer PT 13.5 Seconds (9.4-12.1) H 05/02/17 13:42 D-Dimer [id number] ng/mLFEU (0-500) H 05/01/17 15:46 - Attending Attestation Please see discharge summary of this date.
[2017-05-05 07:04] VITALS: BP 77/39
[2017-05-05] MEDS ORDERED: Atropine Sulfate 1% 40 DROP/2 ML BOTTLE SL PRN (09:05)
[2017-05-05] MEDS ORDERED: *HR* Morphine 2 MG/ML SYRINGE IVP PRN (09:14)
--- NOTE | 2017-05-05 10:42 | Death Note ---
Discharge Sum: Summary - Date and Time Date of admission: 05/01/17 14:02 Date of : 05/05/17 Time of : 10:22 - Summary Details: Mr Rubio was admitted with severe hypernatremia related to intravascular volume depletion. He had associated acute encephalopathy. Mr Rubio was admitted to [facility]. He was started on IV fluids for hypernatremia and these were adjusted multiple times. He had significant upper airway secretions on admission and was very agitated. He was given medications for comfort. Due to concern for pneumonia (despite negative CXR) IV abx were started. He remained agitated most of the first 1-2 days. He had bilateral DVTs noted and was started on IV heparin. He was unable to have CTA due to renal dysfunction and could not have V/Q due to encephalopathy. During the night he developed acute hemoptysis and heparin was stopped. There was also concern for aspiration at that time. Oxygen was adjusted as needed. Due to his encephalopathy there was concern for CVA at this time or in the past but he could not have MRI due to pacer and could not have CTA of brain due to renal dysfunction. His sodium remained elevated and he had significant urine output despite his overall dehydration. 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 He had some slight improvement in his sodium but this was not sustain. He was given IV fluids continuously - [id number] for fluid resuscitation (calculated osm was 350). He was seen by palliative care service. He was DNRCCA/DNI on admission. Family did not want aggressive measures such as intubation, feeding tubes, etc. He continued to decline despite treatment with fluids, abx, oxygen and pain control. He began to become hypotensive on 05/04 and was worse in the AM of 05/05. At 1022 he was pulseless and apneic. His was at the bedside and he was pronounced at that time. Discharge time: 41min - Additional Data Confirmation of as documented by pronouncing clinician: no respirations, no heart sounds Family: at bedside Additional persons at bedside: curtis Attending/PCP notified?: Yes Attending physician: Chad Anderson, DO Was code activated?: No Autopsy requested?: No cigarette examiner notified?: No Organ bank notified?: No Advance directives: Yes Hospice patient?: No Discharge Sum: Diag - PCOD Probable Cause of : Pneumonia Discharge Sum: Prov - Provider Primary care physician: Wm Albert MD Admitting clinician: Chad Anderson Attending physician on admission: Chad Anderson Consults: 05/01/17 15:35 Consult to Nutrition [CONS] Routine Comment: Consulting Provider: NUTRITION Reason for Dietary Consult: PO Supplementation 05/01/17 17:22 Consult to Factory Worker [CONS] Routine Reason for SW Consult: Patient's family would like information regarding POA 05/01/17 17:29 Consult to Palliative Care [CONS] Routine Comment: Consulting Provider: Palliative Care Dania Reason for Consult: Patient was hospitalized three weeks ago at another hospital and his health status completely changed. Currently he is altered and there is concern for aspiration. Will treat for suspected pneumonia and suction PRN. Patient to be NPO unless mentation changes. Discussed palliative need with daughter who is amenable. Call Completed: Yes Pronouncing clinician: Chad Anderson
--- NOTE | 2017-05-05 11:35 | Palliative Progress Note ---
Date of Encounter: 05/05/17 Time of Encounter: 09:00 - Assessment and plan (1) Dyspnea Current Visit: Yes Status: Acute Assessment and plan: Continue Morphine for dyspnea. Will increase frequency to every hour PRN. Qualifiers: Dyspnea type: unspecified Qualified Code(s): R06.00 - Dyspnea, unspecified (2) Goals of care, counseling/discussion Current Visit: Yes Status: Acute Assessment and plan: Code status transitioned to DNRCC per . Appears to be actively dying and anticipate he will pass away soon. Emotional support provided. Manager Loan called and will be here to see patient. (3) Altered mental status Current Visit: No Status: Acute Qualifiers: Altered mental status type: stupor Qualified Code(s): R40.1 - Stupor (4) Acute deep vein thrombosis (DVT) of left femoral vein Current Visit: Yes Status: Acute (5) Acute deep vein thrombosis (DVT) of right popliteal vein Current Visit: Yes Status: Acute - Time Spent With Patient Total time spent is greater than 50% in coordination of care (as documented) at patient's floor/unit and/or counseling patient: 25 - 35 minutes - Subjective Interval history: Patient condition has further deteriorated, now hypotensive and mottling. Unresponsive. Respirations shallow. FAmily at bedside. Dr. Anderson and I visited and discussed plan with them. Family ready to transition to comfort care and stop aggressive treatment with fluids and antiobiotics. - Constitutional Vitals: Abnormal lab results WBC 17.2 K/mcL (4.3-11.1) H 05/04/17 10:19 MCV 101.0 fL (83.0-100.0) H 05/04/17 10:19 MCHC 29.7 g/dL (31.6-35.5) L 05/04/17 10:19 RDW 14.9 % (11.5-14.5) H 05/04/17 10:19 Plt Count 116 K/mcL (140-400) L 05/04/17 10:19 Band Neutrophils % 6.0 % (0-4) H 05/04/17 10:19 Neutrophils # 15.5 K/mcL (1.6-8.9) H 05/04/17 10:19 Nucleated RBCs/100 WBC 0.3 /100 WBC (0) H 05/04/17 10:19 Platelet Estimate Slight Decrease (Normal) L 05/04/17 10:19 PT 13.5 Seconds (9.4-12.1) H 05/02/17 13:42 APTT 217.9 Seconds (26.0-36.0) H* D 05/02/17 18:59 D-Dimer 83215 ng/mLFEU (0-500) H 05/01/17 15:46 Heparin Anti-Xa, Unfract 1.12 IU/mL (0.30-0.70) H* 05/02/17 18:59 ABG pCO2 52 mmHg (35-45) H 05/03/17 08:15 ABG pO2 64 mmHg (85-104) L 05/03/17 08:15 ABG HCO3 30 mEq/L (21-27) H 05/03/17 08:15 ABG Total CO2 31.7 mEq/L (20-26) H 05/03/17 08:15 ABG O2 Saturation 91 % (95-98) L 05/03/17 08:15 ABG Base Excess 3.5 mEq/L (-2.0 to 3.0) H 05/03/17 08:15 Sodium 157 mEq/L (136-145) H 05/04/17 19:58 Potassium 6.1 mEq/L (3.5-4.5) H D 05/04/17 19:58 Chloride 122 mEq/L (98-109) H 05/04/17 19:58 Carbon Dioxide 30 mEq/L (19-29) H 05/04/17 19:58 BUN 55 mg/dL (8-26) H 05/04/17 19:58 Creatinine 2.55 mg/dL (0.72-1.25) H 05/04/17 19:58 Est GFR ( Amer) 29 (> 60) L 05/04/17 19:58 Est GFR (Non-Af Amer) 24 (> 60) L 05/04/17 19:58 Glucose 208 mg/dL (70-99) H 05/04/17 19:58 POC Glucose 120 (58-89) H 05/04/17 11:54 Calculated Osmolality 345 (280-300) H 05/04/17 19:58 AST 180 Units/L (5-34) H 05/04/17 08:41 ALT 113 Units/L (0-55) H 05/04/17 08:41 Ammonia 16 mcmol/L (18-72) L 05/01/17 15:46 Troponin I 0.05 ng/mL (0-0.03) H* 05/02/17 01:08 Serum Total Protein 5.9 g/dL (6.0-8.3) L 05/04/17 08:41 Albumin 2.1 g/dL (3.5-5.0) L 05/04/17 15:05 Globulin 3.9 g/dL (2.4-3.5) H 05/04/17 08:41 Albumin/Globulin Ratio 0.5 (1.1-2.2) L 05/04/17 08:41 HDL Cholesterol 31 mg/dL (40-59) L 05/02/17 01:08 Urine Blood Small (Negative) H 05/01/17 10:00 Urine Bilirubin Small (Negative) H 05/01/17 10:00 Urine Microscopic RBC 5-15 per hpf (0-3) H 05/01/17 10:00 Ur Squamous Epith Cells Many per lpf (None-Few) H 05/01/17 10:00 General appearance: Present: no acute distress - Respiratory Respiratory exam: Present: decreased breath sounds, CTAB - Cardiovascular Cardiovascular exam: Present: +S1, +S2 - GI/Abdominal GI/Abdominal exam: Present: normal bowel sounds, soft - Additional comments: Viramontes with light yellow urine - Extremities Exam Additional comments: Mottling noted to bilateral extremities - Neurological Exam Additional comments: Unresponsive to verbal and tactile stimuli. - Skin Skin exam: Present: dry, pallor, warm Palliative Quality Palliative Quality: Screen for Code Status: Yes, Screen for Goals of Care: Yes, Screen for Pain: Yes, If Pain Regimen Started, Initiate Bowel Regimen: Yes, Screen for Nausea/Vomitting: Yes Code Status: 05/01/17 17:17 Resuscitation Status: Active [RES] Routine Comment: Resuscitation Status: [id number] 05/05/17 09:04 DNR [Resuscitation Status: Active] [RES] Routine Comment: Resuscitation Status: DNR-Comfort Care - Labs CBC & Chem 7: 05/04/17 10:19 05/04/17 19:58 Labs: Laboratory Results - last 24 hr 05/04/17 05/04/17 05/04/17 05:05 11:54 15:05 Sodium 157 H Potassium 4.6 H Chloride 122 H Carbon Dioxide 29 BUN 52 H Creatinine 1.81 H Est GFR ( Amer) 43 L Est GFR (Non-Af Amer) 36 L BUN/Creatinine Ratio 29 H Glucose 172 H POC Glucose 116 H 120 H Calculated Osmolality 342 H Calcium 8.8 Phosphorus 2.8 Albumin 2.1 L 05/04/17 19:58 Sodium 157 H Potassium 6.1 H D Chloride 122 H Carbon Dioxide 30 H BUN 55 H Creatinine 2.55 H Est GFR ( Amer) 29 L Est GFR (Non-Af Amer) 24 L BUN/Creatinine Ratio 22 Glucose 208 H POC Glucose Calculated Osmolality 345 H Calcium 8.7 Phosphorus Albumin - ABG Interpretation ABG results: ABG ABG pH 7.37 pH Units (7.32-7.45) 05/03/17 08:15 ABG pCO2 52 mmHg (35-45) H 05/03/17 08:15 ABG pO2 64 mmHg (85-104) L 05/03/17 08:15 ABG O2 Saturation 91 % (95-98) L 05/03/17 08:15 PT/INR, D-dimer PT 13.5 Seconds (9.4-12.1) H 05/02/17 13:42 D-Dimer [id number] ng/mLFEU (0-500) H 05/01/17 15:46 Consult Discharge Plan - Plan Referrals: Wm Albert MD [Primary Care Provider] -
[2017-05-05] MEDS ORDERED: Vancomycin 1,500 MG in D5% in Water 250 ML IVPB SCH (15:00)
== END 2017-05-05 14:30 | disposition expired | DRG 640 ==
LOC: EMEROO 09:38 → 2NENU 14:02 → SUATTDRO 14:02 → 2NENU 14:37
PROVIDERS: ADMIT Nurse Practitioner Family; ATTEND Internal Medicine